=== PATIENT | female | born 1955 | race Caucasian/White ===

== ENCOUNTER → 2016-12-21 | Outpatient (CLI) | payer BC ==
[~2016-12-21] MED LIST: ACYC400T PO; ALBU1AER9 INH; AMIO200T4 PO; ASPI81TA28 PO; ATOR-54 PO; ATV5 PO; CLBCR15 EXT; FAMO20TA11 PO; HYDR25TA4 PO; METO25TA56 PO; PRENTAB65 PO
--- NOTE | 2016-12-22 15:36 | MAMMOGRAPHY REPORT ---
BILATERAL DIGITAL SCREENING MAMMOGRAM TOMOSYNTHESIS WITH CAD: 12/21/2016 CLINICAL HISTORY: Routine screening. Patient has no complaints. TECHNIQUE: Breast tomosynthesis in addition to standard 2D mammography was performed. Current study was also evaluated with a Computer Aided Detection (CAD) system. COMPARISON: Comparison is made to exams dated: 03/24/2015 mammogram, 12/05/2012 mammogram, 01/20/2014 mammogram, 12/04/2011 mammogram, 12/01/2010 mammogram, and 11/17/2009 mammogram - [facility]. BREAST COMPOSITION: There are scattered areas of fibroglandular density in both breasts. FINDINGS: No suspicious masses, calcifications, or areas of architectural distortion are noted in e ither breast. There has been no significant interval change compared to prior exams. IMPRESSION: ACR BI-RADS CATEGORY 1: NEGATIVE There is no mammographic evidence of malignancy. A 1 year screening mammogram is recommended. The p atient will receive written notification of the results. Approximately 10% of breast cancers are not detected with mammography. A negative mammographic repor t should not delay biopsy if a clinically suggestive mass is present. Koki Morrissey M.D. ah/:12/22/2016 15:14:21 Management Developer: Taylor HERNANDEZ(R)(M), [facility] letter sent: Normal 1/2 BI-RADS Code: ACR BI-RADS Category 1: Negative
== END ==
LOC: C.MAMM 14:51
PROVIDERS: ATTEND Family Medicine
DX: Z12.31 Encounter for screening mammogram for malignant neoplasm of breast (principal)

== ENCOUNTER → 2018-01-22 | Outpatient (CLI) | payer BC ==
--- NOTE | 2018-01-23 15:56 | MAMMOGRAPHY REPORT ---
BILATERAL DIGITAL SCREENING MAMMOGRAM TOMOSYNTHESIS WITH CAD: 01/22/2018 CLINICAL HISTORY: Routine screening. Patient has no complaints. TECHNIQUE: Breast tomosynthesis in addition to standard 2D mammography was performed. Current study was also evaluated with a Computer Aided Detection (CAD) system. COMPARISON: Comparison is made to exams dated: 12/21/2016 mammogram, 03/24/2015 mammogram, 01/20/2014 m ammogram, 12/05/2012 mammogram, 12/04/2011 mammogram, and 12/01/2010 mammogram - [facility]. BREAST COMPOSITION: The tissue of both breasts is almost entirely fatty. FINDINGS: The parenchymal pattern is unchanged. No developing mass, architectural distortion or clus ter of suspicious microcalcifications is seen in either breast. IMPRESSION: ACR BI-RADS CATEGORY 2: BENIGN There is no mammographic evidence of malignancy. A 1 year screening mammogram is recommended. The pa tient will receive written notification of the results. Approximately 10% of breast cancers are not detected with mammography. A negative mammographic report should not delay biopsy if a clinically suggestive mass is present. Rupa Xavier M.D. ay/:01/22/2018 15:53:25 Newspaper Columnist: Marifer Pacheco, M, [facility] letter sent: Normal 1/2 BI-RADS Code: ACR BI-RADS Category 2: Benign
== END | disposition home or self-care (01) ==
LOC: C.MAMM 15:13
PROVIDERS: ATTEND Family Medicine
DX: Z12.31 Encounter for screening mammogram for malignant neoplasm of breast (principal)

== ENCOUNTER 2022-08-21 17:30 | Inpatient (IN) ==
--- NOTE | 2022-08-21 18:02 | ED Triage Note ---
Date of Service August 21, 2022 History of Present Illness This patient was briefly evaluated while in triage. An abbreviated physical exam was performed. This patient is a 66-year-old Female with past medical history of hypertension and aortic stenosis who presents to the ED for evaluation of confusion and excessive tiredness. Last known well last night 7:30 pm. Off balance, shaky, and trouble walking. Hurt her left shoulder a few weeks ago and was started on prednisone. Also had a flu shot 2 weeks ago. Family is wondering if she is having a reaction to the prednisone or the flu shot. Physical Exam CONSTITUTIONAL: No acute distress. Well appearing. HEENT: atraumatic. PERRL. RESPIRATORY: Clear to auscultation bilaterally. Equal expansion bilaterally. CARDIOVASCULAR: Regular rate and rhythm with no murmurs, rubs or gallops. Normal peripheral perfusion. No peripheral edema. GASTROINTESTINAL: Soft, nontender. MUSCULOSKELETAL: Normal strength in all 4 extremities. NEUROLOGIC: Alert and oriented X 4 with normal affect. Normal sensation in all 4 extremities. No facial droop. No pronator drift. Normal speech. Unsteady gait. Given the last known well time is significantly outside the treatment window, a nd a stroke alert was not initiated. Initial orders for labs and / or imaging were placed and patient was placed in the waiting area until a bed is available. Please see further documentation for the full ED course.
--- NOTE | 2022-08-21 19:18 | XRay Report ---
XR chest 1V portable CLINICAL HISTORY: Dizziness, confusion TECHNIQUE: Single frontal radiograph of the chest was obtained. Comparison: Comparison is made to chest radiograph 01/10/2019 FINDINGS: Median sternotomy wires are unchanged. Cardiomegaly is noted. The lungs are clear. No evidence of ple ural effusion or pneumothorax. IMPRESSION: No acute chest disease. ACT 112: Negative or not required by law. Electronically signed by: Tor Simmons M.D. 08/21/2022 7:17 PM
[2022-08-21] MEDS ORDERED: SODIUM CHLORIDE 0.9% 1000ML 1,000 ML IV ONE (20:05)
--- NOTE | 2022-08-21 20:08 | Emergency Department Note ---
Impression & Plan Acute alteration in mental status ADMIT ED Provider Note HPI: The patient is a 66-year-old female who presents the emergency department with a chief complaint of confusion. Patient presents with friend at the bedside who states that the patient normally speaks with them in the morning, patient was unavailable this morning and they became concerned, they checked on the patient at approximately 4 PM and she was in her bedroom in a confused state, apparently she had just gotten out of bed and she was standing in the bedroom and seemed slow to respond to questions and seemed confused. She was last known to be normal last night around 7:30 PM when they were speaking to her on the phone and she seemed to be in her baseline state of health. On arrival here to the ED the patient does not have any focal deficits, she is slow to respond to some questioning and is unsure of the year but she is aware of her surroundings, she knows that she is in the hospital, she knows her name and age. Patient is otherwise hemodynamically stable on arrival. Denies any history of alcohol use, no reported history of any opioid abuse or prescription drug abuse per friends at the bedside. ROS: -Neuro: Altered mental status/confusion *10 point review systems was conducted and is otherwise negative unless stated above *Outpatient medications and allergy history reviewed PE: General: Alert, NAD, oriented to place and self but not year HEENT: Normocephalic, atraumatic Eyes: Extraocular eye movement is intact, no scleral erythema Pulmonary: Clear to auscultation bilaterally, no wheezing Cardio: Regular rate and rhythm GI: Abdomen is soft, nontender : No suprapubic tenderness MSK: No evidence of trauma or malformation of the extremities, no edema Skin: No evidence of rash Neuro: Alert, no focal deficits, equal bilateral mri special procedures technologist strength, symmetrical facial movements are appreciated, patient is somewhat slow to respond to questions Psychiatric: Cooperative inbound call center representative: - An order was placed for continuous cardiac monitoring - Patient was noted to be in sinus rhythm with a rate of 60 CTA HEAD: No aneurysm or large vessel occlusion. Radiologist: Lamar Hood M.D. CTA NECK: No dissection, occlusion, or significant stenosis the carotid or vertebral vessels. Mild atherosclerosis aortic arch and left carotid bifurcation. 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 Findings are chronic, and of uncertain significance. No flow restricting lesion. Radiologist: Lamar Hood M.D. EKG: Rate: 74 Rhythm: Sinus rhythm Intervals: Within normal limits ST changes: No ST elevation Time: 2019 NIH STROKE SCALE: 1A: Level of consciousness Alert; keenly responsive 0 1B: Ask month and age 1 question right +1 1C: 'Blink eyes' & 'squeeze hands' Performs both tasks 0 2: Horizontal extraocular movements Normal 0 3: Visual yang No visual loss 0 4: Facial palsy Normal symmetry 0 5A: Left arm motor drift No drift for 10 seconds 0 5B: Right arm motor drift No drift for 10 seconds 0 6A: Left leg motor drift No drift for 5 seconds 0 6B: Right leg motor drift No drift for 5 seconds 0 7: Limb Ataxia No ataxia 0 8: Sensation Normal; no sensory loss 0 9: Language/aphasia Normal; no aphasia 0 10: Dysarthria Normal 0 11: Extinction/inattention No abnormality 0 TOTAL NIH SCORE =1 Medical Decision Making: Patient presented to the emergency department with confusion, found in her home later this afternoon by friends after they were unable to get in touch with her. Patient seemed confused when she was in her bedroom, on arrival here to the ED she is somewhat slow to answer my questions but she is otherwise in no acute distress and without focal deficits. NIH is noted to be 1, patient was last seen normal at 7:30 PM last night, she is not considered a candidate for tPA or aggressive therapy at this time secondary to being outside the window in addit ion to stroke possibly not being the diagnosis. IV was established, lab work obtained, CT angiography of the head and neck were ordered. These do not show any evidence of large vessel occlusion or stroke. No evidence of intracranial bleeding. Lab work shows evidence of a leukocytosis greater than 15,000, patient is noted to be on steroids currently for rotator cuff issue, she does have a left shift, unclear source at this time. Patient's urinalysis does appear to be infected, this is a potential source. She was treated with broad-spectrum antibiotics given her altered mental status inclu ding vancomycin and cefepime. Patient later complained of headache, she was given Reglan and Benadryl as well as IV fluids. My reassessment her friend at the bedside does mention upon my questioning that the patient has not used a wood stove in her house however patient does later state that she turned on an oil furnace just last night for the first time. Do have concern that she may been exposed to carbon monoxide given her headache and altered mental status, her mental status seems to be im proving throughout her stay here in the ED which would also be of concern for carbon monoxide poisoning. Carboxyhemoglobin level was obtained and is within normal limits however this was several hours after the patient's presentation. Patient's friend did return to the house to have a check for carbon monoxide. No one else is living at this residence according to the patient and her friend at the bedside. At this time patient will be admitted given her altered mental status and urinary tract infection, although stroke is lower on my differential at this time it cannot be completely ruled out I do think the patient would benefit from MRI imaging of the brain tomorrow. I discussed the above findings with the on-call hospitalist, Dr. Monroy, and the patient was admitted in stable condition for further care. Diagnosis: 1. Altered mental status/confusion, acute 2. UTI 3. Headache 4. Possible carbon monoxide exposure Disposition: ADMIT Efrain Brewster DO Emergency Medicine Past Med/Surg History Medical History (Updated 08/22/22 @ 02:21 by Efrain Brewster DO) Aortic stenosis Diabetes Heart disease HTN (hypertension) Skin problem Family History (Updated 01/10/19 @ 11:38 by Mayra Nieto) Other Diabetes Heart disease Hypertension Social History Smoking Status: Never smoker Feels Safe at Home: Yes Allergies Allergies Allergy/AdvReac Type Severity Reaction Status Date / Time No Known Allergies Allergy Unverified 08/22/22 00:02 Home Meds Home Medications Medication Instructions Recorded Confirmed acyclovir 400 mg tablet 400 mg PO DIRECTED 08/22/22 08/22/22 amoxicillin 500 mg capsule 2,000 mg PO DIRECTED PRN Take 1 08/22/22 08/22/22 hr proir to dental apt. aspirin 81 mg tablet,delayed 81 mg PO DAILY 08/22/22 08/22/22 release atorvastatin 20 mg tablet 20 mg PO DAILY 08/22/22 08/22/22 clobetasol 0.05 % topical cream 1 applic topical BID PRN flare ups 08/22/22 08/22/22 ferrous sulfate 325 mg (65 mg 325 mg PO DAILY 08/22/22 08/22/22 iron) tablet (iron) hydrochlorothiazide 25 mg tablet 25 mg PO QAM 08/22/22 08/22/22 lisinopril 20 mg tablet 20 mg PO QAM 08/22/22 08/22/22 lorazepam 0.5 mg tablet 0.5 mg PO HS PRN Sleep 08/22/22 08/22/22 prednisone 20 mg tablet 20 mg PO .TAPER UD 08/22/22 08/22/22 Results & Data (ED) Vital Signs Vital Signs - 24 hr 08/21/22 17:58 08/21/22 20:06 08/21/22 20:26 Temperature 37.0 C 37.3 C Temperature Source Oral Oral Pulse Rate 80 72 Pulse Rate [Apical] 73 Pulse Rate from SpO2 Sensor 71 Pulse Rhythm [Apical] Regular Respiratory Rate 18 16 32 H Respiratory Effort / Characteristics Non-Labored Spontaneous Respiratory Depth Normal Respiratory Pattern Regular Blood Pressure 138/80 Blood Pressure [Right Arm] 143/63 H Blood Pressure Mean 99 Blood Pressure Mean [Right Arm] 89 Blood Pressure Position Sitting Blood Pressure Position [Right Arm] Pulse Oximetry 98 97 97 Oxygen Delivery Method Room Air Room Air Sepsis Recent Fever Within 48 Hours No Sepsis New/Unexplained Change in Mental Status No Sepsis Action Taken by Nursing No Action Required 08/21/22 20:30 08/21/22 20:30 08/21/22 20:40 Temperature Temperature Source Pulse Rate 71 73 Pulse Rate [Apical] Pulse Rate from SpO2 Sensor 71 73 Pulse Rhythm [Apical] Respiratory Rate 29 H Respiratory Effort / Characteristics Respiratory Depth Respiratory Pattern Blood Pressure 143/65 H Blood Pressure [Right Arm] Blood Pressure Mean 91 Blood Pressure Mean [Right Arm] Blood Pressure Position Blood Pressure Position [Right Arm] Pulse Oximetry 97 97 Oxygen Delivery Method Room Air Room Air Room Air Sepsis Recent Fever Within 48 Hours Sepsis New/Unexplained Change in Mental Status Sepsis Action Taken by Nursing 08/21/22 20:50 08/21/22 21:00 08/21/22 21:01 Temperature Temperature Source Pulse Rate 83 84 80 Pulse Rate [Apical] Pulse Rate from SpO2 Sensor 82 76 79 Pulse Rhythm [Apical] Respiratory Rate 25 H 22 Respiratory Effort / Characteristics Respiratory Depth Respiratory Pattern Blood Pressure Blood Pressure [Right Arm] Blood Pressure Mean Blood Pressure Mean [Right Arm] Blood Pressure Position Blood Pressure Position [Right Arm] Pulse Oximetry 98 97 98 Oxygen Delivery Method Room Air Room Air Room Air Sepsis Recent Fever Within 48 Hours Sepsis New/Unexplained Change in Mental Status Sepsis Action Taken by Nursing 08/21/22 21:01 08/21/22 21:10 08/21/22 21:20 Temperature Temperature Source Pulse Rate 78 74 Pulse Rate [Apical] Pulse Rate from SpO2 Sensor 78 75 Pulse Rhythm [Apical] Respiratory Rate 24 Respiratory Effort / Characteristics Respiratory Depth Respiratory Pattern Blood Pressure 144/85 H Blood Pressure [Right Arm] Blood Pressure Mean 104 Blood Pressure Mean [Right Arm] Blood Pressure Position Blood Pressure Position [Right Arm] Pulse Oximetry 98 94 Oxygen Delivery Method Room Air Room Air Room Air Sepsis Recent Fever Within 48 Hours Sepsis New/Unexplained Change in Mental Status Sepsis Action Taken by Nursing 08/21/22 21:30 08/21/22 21:30 08/21/22 21:40 Temperature Temperature Source Pulse Rate 76 81 Pulse Rate [Apical] Pulse Rate from SpO2 Sensor 76 81 Pulse Rhythm [Apical] Respiratory Rate 25 H Respiratory Effort / Characteristics Respiratory Depth Respiratory Pattern Blood Pressure 129/66 Blood Pressure [Right Arm] Blood Pressure Mean 87 Blood Pressure Mean [Right Arm] Blood Pressure Position Blood Pressure Position [Right Arm] Pulse Oximetry 92 94 Oxygen Delivery Method Room Air Room Air Room Air Sepsis Recent Fever Within 48 Hours Sepsis New/Unexplained Change in Mental Status Sepsis Action Taken by Nursing 08/21/22 23:52 08/22/22 01:00 Temperature Temperature Source Pulse Rate Pulse Rate [Apical] 62 58 L Pulse Rate from SpO2 Sensor Pulse Rhythm [Apical] Respiratory Rate 18 18 Respiratory Effort / Characteristics Non-Labored Spontaneous Non-Labored Spontaneous Respiratory Depth Normal Normal Respiratory Pattern Regular Regular Blood Pressure Blood Pressure [Right Arm] 129/66 107/55 L Blood Pressure Mean Blood Pressure Mean [Right Arm] 87 72 Blood Pressure Position Blood Pressure Position [Right Arm] Sitting Sitting Pulse Oximetry 97 93 Oxygen Delivery Method Room Air Room Air Sepsis Recent Fever Within 48 Hours Sepsis New/Unexplained Change in Mental Status Sepsis Action Taken by Nursing Laboratory Data Result diagrams: 08/21/22 20:09 08/21/22 20:09 Lab Results 08/21/22 08/21/22 08/21/22 Range/Units 20:09 20:09 20:09 WBC 15.95 H (4.8-10.8) K/ul RBC 4.04 (3.93-5.22) M/uL Hgb 11.7 L (12.0-16.0) g/dl Hct 36.4 (34.1-44.9) % MCV 90.1 (80.0-100.0) fL MCH 29.0 (25.0-34.0) pg MCHC 32.1 (32.0-36.0) g/dL RDW Std Deviation 42.3 (36.4-46.3) fL RDW Coeff of Aimee 12.8 (11.5-14.5) % Plt Count 364 (130-400) K/uL MPV 8.8 L (9.4-12.3) fL Immature Gran % (Auto) 1.0 % Neut % (Auto) 79.1 % Lymph % (Auto) 11.1 % Haakon % (Auto) 8.6 % Eos % (Auto) 0.0 % Baso % (Auto) 0.2 % Reticulocyte % (Auto) (0.5-2.0) % Neut # (Auto) 12.62 H (1.4-6.5) K/uL Lymph # (Auto) 1.77 (1.2-3.4) K/uL Haakon # (Auto) 1.37 H (0.24-0.82) K/uL Eos # (Auto) 0.00 (0-0.50) K/uL Baso # (Auto) 0.03 (0-0.2) K/uL Reticulocyte # (0.02-0.10) 10^6/uL Immature Gran # (Auto) 0.16 H (0.00-0.02) K/uL PT 11.2 (9.0-12.0) Seconds INR 1.1 (0.9-1.1) APTT 28.2 (21.0-31.0) Seconds PTT Ratio 1.0 Carboxyhemoglobin % THgb Sodium 139 (136-145) mmol/L Potassium 3.1 L (3.5-5.1) mmol/L Chloride 101 (98-107) mmol/L Carbon Dioxide 31 (21-32) mmol/L Anion Gap 7 (3-11) BUN 18 (6-23) mg/dl Creatinine 0.76 (0.6-1.2) mg/dl Est Cr Clr Drug Dosing Not Reportable Est GFR ( Amer) 93.4 ml/min Est GFR (Non-Af Amer) 80.6 ml/min BUN/Creatinine Ratio 23.7 H (10-20) Glucose 110 H (70-99(Fasting)) mg/dl Lactate (0.4-2.0) mmol/L Calcium 9.3 (8.5-10.1) mg/dl Magnesium (1.7-2.4) mg/dl Iron (35-150) mcg/dl Transferrin (200-360) mg/dl Ferritin (8-388) ng/ml Total Bilirubin 0.5 (0.2-1.0) mg/dl AST 12 L (13-39) U/L ALT 10 (7-52) U/L Alkaline Phosphatase 72 (34-104) U/L Ammonia (18-72) umol/L Troponin I High Sens 42.4 H (0-14) pg/ml Total Protein 6.9 (6.0-8.3) gm/dl Albumin 3.8 (3.4-5.0) gm/dl Globulin 3.1 (2.5-4.0) gm/dl Albumin/Globulin Ratio 1.2 (0.9-2) Vitamin B12 (180-914) pg/ml Folate (>5.38) ng/ml TSH (0.300-4.500) uIu/ml Urine Color Urine Appearance (Clear) Urine pH (4.5-7.5) Ur Specific [place] (1.000-1.030) Urine Protein (Negative) Urine Glucose (UA) (Negative) Urine Ketones (Negative) Urine Blood (Negative) Urine Nitrite (Negative) Urine Bilirubin (Negative) Urine Urobilinogen (Negative) Ur Leukocyte Esterase (Negative) Urine WBC (Auto) (0-5) /hpf Urine RBC (Auto) (0-4) /hpf U Hyaline Cast (Auto) (0-5) /lpf U Epithel Cells (Auto) (0-5) /lpf Urine Bacteria (Auto) (Negative) Urine Opiates Screen (Neg) Ur Methadone, Qual (Neg) Urine Barbiturates (Neg) Ur Phencyclidine (PCP) (Neg) U Amphetamin/Meth Scrn (Neg) MDMA (Ecstasy) Screen (Neg) U Benzodiazepines Scrn (Neg) Ur Cocaine Metabolite (Neg) U Marijuana (THC) Screen (Neg) Ethyl Alcohol mg/dL (<10.0) mg/dl Lyme Disease IgG Ab (Negative) Lyme Disease IgM Ab (Negative) SARS-CoV-2 (PCR) (Negative) Influenza Type A (PCR) (Neg) Influenza Type B (PCR) (Neg) RSV (RT-PCR) (Neg) 08/21/22 08/21/22 08/21/22 Range/Units 20:09 20:09 20:09 WBC (4.8-10.8) K/ul RBC (3.93-5.22) M/uL Hgb (12.0-16.0) g/dl Hct (34.1-44.9) % MCV (80.0-100.0) fL MCH (25.0-34.0) pg MCHC (32.0-36.0) g/dL RDW Std Deviation (36.4-46.3) fL RDW Coeff of Aimee (11.5-14.5) % Plt Count (130-400) K/uL MPV (9.4-12.3) fL Immature Gran % (Auto) % Neut % (Auto) % Lymph % (Auto) % [place] % (Auto) % Eos % (Auto) % Baso % (Auto) % Reticulocyte % (Auto) (0.5-2.0) % Neut # (Auto) (1.4-6.5) K/uL Lymph # (Auto) (1.2-3.4) K/uL Haakon # (Auto) (0.24-0.82) K/uL Eos # (Auto) (0-0.50) K/uL Baso # (Auto) (0-0.2) K/uL Reticulocyte # (0.02-0.10) 10^6/uL Immature Gran # (Auto) (0.00-0.02) K/uL PT (9.0-12.0) Seconds INR (0.9-1.1) APTT (21.0-31.0) Seconds PTT Ratio Carboxyhemoglobin % THgb Sodium (136-145) mmol/L Potassium (3.5-5.1) mmol/L Chloride (98-107) mmol/L Carbon Dioxide (21-32) mmol/L Anion Gap (3-11) BUN (6-23) mg/dl Creatinine (0.6-1.2) mg/dl Est Cr Clr Drug Dosing Est GFR ( Amer) ml/min Est GFR (Non-Af Amer) ml/min BUN/Creatinine Ratio (10-20) Glucose (70-99(Fasting)) mg/dl Lactate (0.4-2.0) mmol/L Calcium (8.5-10.1) mg/dl Magnesium 2.0 (1.7-2.4) mg/dl Iron (35-150) mcg/dl Transferrin (200-360) mg/dl Ferritin (8-388) ng/ml Total Bilirubin (0.2-1.0) mg/dl AST (13-39) U/L ALT (7-52) U/L Alkaline Phosphatase (34-104) U/L Ammonia 30.0 (18-72) umol/L Troponin I High Sens (0-14) pg/ml Total Protein (6.0-8.3) gm/dl Albumin (3.4-5.0) gm/dl Globulin (2.5-4.0) gm/dl Albumin/Globulin Ratio (0.9-2) Vitamin B12 (180-914) pg/ml Folate (>5.38) ng/ml TSH (0.300-4.500) uIu/ml Urine Color Urine Appearance (Clear) Urine pH (4.5-7.5) Ur Specific [place] (1.000-1.030) Urine Protein (Negative) Urine Glucose (UA) (Negative) Urine Ketones (Negative) Urine Blood (Negative) Urine Nitrite (Negative) Urine Bilirubin (Negative) Urine Urobilinogen (Negative) Ur Leukocyte Esterase (Negative) Urine WBC (Auto) (0-5) /hpf Urine RBC (Auto) (0-4) /hpf U Hyaline Cast (Auto) (0-5) /lpf U Epithel Cells (Auto) (0-5) /lpf Urine Bacteria (Auto) (Negative) Urine Opiates Screen (Neg) Ur Methadone, Qual (Neg) Urine Barbiturates (Neg) Ur Phencyclidine (PCP) (Neg) U Amphetamin/Meth Scrn (Neg) MDMA (Ecstasy) Screen (Neg) U Benzodiazepines Scrn (Neg) Ur Cocaine Metabolite (Neg) U Marijuana (THC) Screen (Neg) Ethyl Alcohol mg/dL (<10.0) mg/dl Lyme Disease IgG Ab (Negative) Lyme Disease IgM Ab (Negative) SARS-CoV-2 (PCR) NEGATIVE (Negative) Influenza Type A (PCR) Negative (Neg) Influenza Type B (PCR) Negative (Neg) RSV (RT-PCR) Negative (Neg) 08/21/22 08/21/22 08/21/22 Range/Units 20:28 21:15 21:50 WBC (4.8-10.8) K/ul RBC (3.93-5.22) M/uL Hgb (12.0-16.0) g/dl Hct (34.1-44.9) % MCV (80.0-100.0) fL MCH (25.0-34.0) pg MCHC (32.0-36.0) g/dL RDW Std Deviation (36.4-46.3) fL RDW Coeff of Aimee (11.5-14.5) % Plt Count (130-400) K/uL MPV (9.4-12.3) fL Immature Gran % (Auto) % Neut % (Auto) % Lymph % (Auto) % [place] % (Auto) % Eos % (Auto) % Baso % (Auto) % Reticulocyte % (Auto) (0.5-2.0) % Neut # (Auto) (1.4-6.5) K/uL Lymph # (Auto) (1.2-3.4) K/uL [place]on # (Auto) (0.24-0.82) K/uL Eos # (Auto) (0-0.50) K/uL Baso # (Auto) (0-0.2) K/uL Reticulocyte # (0.02-0.10) 10^6/uL Immature Gran # (Auto) (0.00-0.02) K/uL PT (9.0-12.0) Seconds INR (0.9-1.1) APTT (21.0-31.0) Seconds PTT Ratio Carboxyhemoglobin % THgb Sodium (136-145) mmol/L Potassium (3.5-5.1) mmol/L Chloride (98-107) mmol/L Carbon Dioxide (21-32) mmol/L Anion Gap (3-11) BUN (6-23) mg/dl Creatinine (0.6-1.2) mg/dl Est Cr Clr Drug Dosing Est GFR ( Amer) ml/min Est GFR (Non-Af Amer) ml/min BUN/Creatinine Ratio (10-20) Glucose (70-99(Fasting)) mg/dl Lactate 0.8 (0.4-2.0) mmol/L Calcium (8.5-10.1) mg/dl Magnesium (1.7-2.4) mg/dl Iron (35-150) mcg/dl Transferrin (200-360) mg/dl Ferritin (8-388) ng/ml Total Bilirubin (0.2-1.0) mg/dl AST (13-39) U/L ALT (7-52) U/L Alkaline Phosphatase (34-104) U/L Ammonia (18-72) umol/L Troponin I High Sens (0-14) pg/ml Total Protein (6.0-8.3) gm/dl Albumin (3.4-5.0) gm/dl Globulin (2.5-4.0) gm/dl Albumin/Globulin Ratio (0.9-2) Vitamin B12 (180-914) pg/ml Folate (>5.38) ng/ml TSH (0.300-4.500) uIu/ml Urine Color Yellow Urine Appearance Clear (Clear) Urine pH 7.5 (4.5-7.5) Ur Specific [place] 1.024 (1.000-1.030) Urine Protein 3+ H (Negative) Urine Glucose (UA) Negative (Negative) Urine Ketones Negative (Negative) Urine Blood Trace H (Negative) Urine Nitrite Negative (Negative) Urine Bilirubin Negative (Negative) Urine Urobilinogen Negative (Negative) Ur Leukocyte Esterase 2+ H (Negative) Urine WBC (Auto) >30 H (0-5) /hpf Urine RBC (Auto) 10-30 H (0-4) /hpf U Hyaline Cast (Auto) 10-30 H (0-5) /lpf U Epithel Cells (Auto) 5-10 H (0-5) /lpf Urine Bacteria (Auto) Negative (Negative) Urine Opiates Screen (Neg) Ur Methadone, Qual (Neg) Urine Barbiturates (Neg) Ur Phencyclidine (PCP) (Neg) U Amphetamin/Meth Scrn (Neg) MDMA (Ecstasy) Screen (Neg) U Benzodiazepines Scrn (Neg) Ur Cocaine Metabolite (Neg) U Marijuana (THC) Screen (Neg) Ethyl Alcohol mg/dL < 10.0 (<10.0) mg/dl Lyme Disease IgG Ab (Negative) Lyme Disease IgM Ab (Negative) SARS-CoV-2 (PCR) (Negative) Influenza Type A (PCR) (Neg) Influenza Type B (PCR) (Neg) RSV (RT-PCR) (Neg) 08/21/22 08/21/22 08/22/22 Range/Units 21:54 23:59 01:06 WBC (4.8-10.8) K/ul RBC (3.93-5.22) M/uL Hgb (12.0-16.0) g/dl Hct (34.1-44.9) % MCV (80.0-100.0) fL MCH (25.0-34.0) pg MCHC (32.0-36.0) g/dL RDW Std Deviation (36.4-46.3) fL RDW Coeff of Aimee (11.5-14.5) % Plt Count (130-400) K/uL MPV (9.4-12.3) fL Immature Gran % (Auto) % Neut % (Auto) % Lymph % (Auto) % [place] % (Auto) % Eos % (Auto) % Baso % (Auto) % Reticulocyte % (Auto) 1.1 (0.5-2.0) % Neut # (Auto) (1.4-6.5) K/uL Lymph # (Auto) (1.2-3.4) K/uL [place] # (Auto) (0.24-0.82) K/uL Eos # (Auto) (0-0.50) K/uL Baso # (Auto) (0-0.2) K/uL Reticulocyte # 0.04 (0.02-0.10) 10^6/uL Immature Gran # (Auto) (0.00-0.02) K/uL PT (9.0-12.0) Seconds INR (0.9-1.1) APTT (21.0-31.0) Seconds PTT Ratio Carboxyhemoglobin 2.0 % THgb Sodium (136-145) mmol/L Potassium (3.5-5.1) mmol/L Chloride (98-107) mmol/L Carbon Dioxide (21-32) mmol/L Anion Gap (3-11) BUN (6-23) mg/dl Creatinine (0.6-1.2) mg/dl Est Cr Clr Drug Dosing Est GFR ( Amer) ml/min Est GFR (Non-Af Amer) ml/min BUN/Creatinine Ratio (10-20) Glucose (70-99(Fasting)) mg/dl Lactate (0.4-2.0) mmol/L Calcium (8.5-10.1) mg/dl Magnesium (1.7-2.4) mg/dl Iron (35-150) mcg/dl Transferrin (200-360) mg/dl Ferritin (8-388) ng/ml Total Bilirubin (0.2-1.0) mg/dl AST (13-39) U/L ALT (7-52) U/L Alkaline Phosphatase (34-104) U/L Ammonia (18-72) umol/L Troponin I High Sens (0-14) pg/ml Total Protein (6.0-8.3) gm/dl Albumin (3.4-5.0) gm/dl Globulin (2.5-4.0) gm/dl Albumin/Globulin Ratio (0.9-2) Vitamin B12 (180-914) pg/ml Folate (>5.38) ng/ml TSH (0.300-4.500) uIu/ml Urine Color Urine Appearance (Clear) Urine pH (4.5-7.5) Ur Specific [place] (1.000-1.030) Urine Protein (Negative) Urine Glucose (UA) (Negative) Urine Ketones (Negative) Urine Blood (Negative) Urine Nitrite (Negative) Urine Bilirubin (Negative) Urine Urobilinogen (Negative) Ur Leukocyte Esterase (Negative) Urine WBC (Auto) (0-5) /hpf Urine RBC (Auto) (0-4) /hpf U Hyaline Cast (Auto) (0-5) /lpf U Epithel Cells (Auto) (0-5) /lpf Urine Bacteria (Auto) (Negative) Urine Opiates Screen Neg (Neg) Ur Methadone, Qual Neg (Neg) Urine Barbiturates Neg (Neg) Ur Phencyclidine (PCP) Neg (Neg) U Amphetamin/Meth Scrn Neg (Neg) MDMA (Ecstasy) Screen Neg (Neg) U Benzodiazepines Scrn Neg (Neg) Ur Cocaine Metabolite Neg (Neg) U Marijuana (THC) Screen Neg (Neg) Ethyl Alcohol mg/dL (<10.0) mg/dl Lyme Disease IgG Ab (Negative) Lyme Disease IgM Ab (Negative) SARS-CoV-2 (PCR) (Negative) Influenza Type A (PCR) (Neg) Influenza Type B (PCR) (Neg) RSV (RT-PCR) (Neg) 08/22/22 08/22/22 08/22/22 Range/Units 01:06 01:06 01:06 WBC (4.8-10.8) K/ul RBC (3.93-5.22) M/uL Hgb (12.0-16.0) g/dl Hct (34.1-44.9) % MCV (80.0-100.0) fL MCH (25.0-34.0) pg MCHC (32.0-36.0) g/dL RDW Std Deviation (36.4-46.3) fL RDW Coeff of Aimee (11.5-14.5) % Plt Count (130-400) K/uL MPV (9.4-12.3) fL Immature Gran % (Auto) % Neut % (Auto) % Lymph % (Auto) % [place] % (Auto) % Eos % (Auto) % Baso % (Auto) % Reticulocyte % (Auto) (0.5-2.0) % Neut # (Auto) (1.4-6.5) K/uL Lymph # (Auto) (1.2-3.4) K/uL [place] # (Auto) (0.24-0.82) K/uL Eos # (Auto) (0-0.50) K/uL Baso # (Auto) (0-0.2) K/uL Reticulocyte # (0.02-0.10) 10^6/uL Immature Gran # (Auto) (0.00-0.02) K/uL PT (9.0-12.0) Seconds INR (0.9-1.1) APTT (21.0-31.0) Seconds PTT Ratio Carboxyhemoglobin % THgb Sodium (136-145) mmol/L Potassium (3.5-5.1) mmol/L Chloride (98-107) mmol/L Carbon Dioxide (21-32) mmol/L Anion Gap (3-11) BUN (6-23) mg/dl Creatinine (0.6-1.2) mg/dl Est Cr Clr Drug Dosing Est GFR ( Amer) ml/min Est GFR (Non-Af Amer) ml/min BUN/Creatinine Ratio (10-20) Glucose (70-99(Fasting)) mg/dl Lactate (0.4-2.0) mmol/L Calcium (8.5-10.1) mg/dl Magnesium (1.7-2.4) mg/dl Iron 10 L (35-150) mcg/dl Transferrin 142 L (200-360) mg/dl Ferritin 648.3 H (8-388) ng/ml Total Bilirubin (0.2-1.0) mg/dl AST (13-39) U/L ALT (7-52) U/L Alkaline Phosphatase (34-104) U/L Ammonia (18-72) umol/L Troponin I High Sens 37.7 H (0-14) pg/ml Total Protein (6.0-8.3) gm/dl Albumin (3.4-5.0) gm/dl Globulin (2.5-4.0) gm/dl Albumin/Globulin Ratio (0.9-2) Vitamin B12 235 (180-914) pg/ml Folate 14.48 (>5.38) ng/ml TSH 1.524 (0.300-4.500) uIu/ml Urine Color Urine Appearance (Clear) Urine pH (4.5-7.5) Ur Specific [place] (1.000-1.030) Urine Protein (Negative) Urine Glucose (UA) (Negative) Urine Ketones (Negative) Urine Blood (Negative) Urine Nitrite (Negative) Urine Bilirubin (Negative) Urine Urobilinogen (Negative) Ur Leukocyte Esterase (Negative) Urine WBC (Auto) (0-5) /hpf Urine RBC (Auto) (0-4) /hpf U Hyaline Cast (Auto) (0-5) /lpf U Epithel Cells (Auto) (0-5) /lpf Urine Bacteria (Auto) (Negative) Urine Opiates Screen (Neg) Ur Methadone, Qual (Neg) Urine Barbiturates (Neg) Ur Phencyclidine (PCP) (Neg) U Amphetamin/Meth Scrn (Neg) MDMA (Ecstasy) Screen (Neg) U Benzodiazepines Scrn (Neg) Ur Cocaine Metabolite (Neg) U Marijuana (THC) Screen (Neg) Ethyl Alcohol mg/dL (<10.0) mg/dl Lyme Disease IgG Ab (Negative) Lyme Disease IgM Ab (Negative) SARS-CoV-2 (PCR) (Negative) Influenza Type A (PCR) (Neg) Influenza Type B (PCR) (Neg) RSV (RT-PCR) (Neg) 08/22/22 Range/Units 01:06 WBC (4.8-10.8) K/ul RBC (3.93-5.22) M/uL Hgb (12.0-16.0) g/dl Hct (34.1-44.9) % MCV (80.0-100.0) fL MCH (25.0-34.0) pg MCHC (32.0-36.0) g/dL RDW Std Deviation (36.4-46.3) fL RDW Coeff of Aimee (11.5-14.5) % Plt Count (130-400) K/uL MPV (9.4-12.3) fL Immature Gran % (Auto) % Neut % (Auto) % Lymph % (Auto) % [place] % (Auto) % Eos % (Auto) % Baso % (Auto) % Reticulocyte % (Auto) (0.5-2.0) % Neut # (Auto) (1.4-6.5) K/uL Lymph # (Auto) (1.2-3.4) K/uL [place] # (Auto) (0.24-0.82) K/uL Eos # (Auto) (0-0.50) K/uL Baso # (Auto) (0-0.2) K/uL Reticulocyte # (0.02-0.10) 10^6/uL Immature Gran # (Auto) (0.00-0.02) K/uL PT (9.0-12.0) Seconds INR (0.9-1.1) APTT (21.0-31.0) Seconds PTT Ratio Carboxyhemoglobin % THgb Sodium (136-145) mmol/L Potassium (3.5-5.1) mmol/L Chloride (98-107) mmol/L Carbon Dioxide (21-32) mmol/L Anion Gap (3-11) BUN (6-23) mg/dl Creatinine (0.6-1.2) mg/dl Est Cr Clr Drug Dosing Est GFR ( Amer) ml/min Est GFR (Non-Af Amer) ml/min BUN/Creatinine Ratio (10-20) Glucose (70-99(Fasting)) mg/dl Lactate (0.4-2.0) mmol/L Calcium (8.5-10.1) mg/dl Magnesium (1.7-2.4) mg/dl Iron (35-150) mcg/dl Transferrin (200-360) mg/dl Ferritin (8-388) ng/ml Total Bilirubin (0.2-1.0) mg/dl AST (13-39) U/L ALT (7-52) U/L Alkaline Phosphatase (34-104) U/L Ammonia (18-72) umol/L Troponin I High Sens (0-14) pg/ml Total Protein (6.0-8.3) gm/dl Albumin (3.4-5.0) gm/dl Globulin (2.5-4.0) gm/dl Albumin/Globulin Ratio (0.9-2) Vitamin B12 (180-914) pg/ml Folate (>5.38) ng/ml TSH (0.300-4.500) uIu/ml Urine Color Urine Appearance (Clear) Urine pH (4.5-7.5) Ur Specific [place] (1.000-1.030) Urine Protein (Negative) Urine Glucose (UA) (Negative) Urine Ketones (Negative) Urine Blood (Negative) Urine Nitrite (Negative) Urine Bilirubin (Negative) Urine Urobilinogen (Negative) Ur Leukocyte Esterase (Negative) Urine WBC (Auto) (0-5) /hpf Urine RBC (Auto) (0-4) /hpf U Hyaline Cast (Auto) (0-5) /lpf U Epithel Cells (Auto) (0-5) /lpf Urine Bacteria (Auto) (Negative) Urine Opiates Screen (Neg) Ur Methadone, Qual (Neg) Urine Barbiturates (Neg) Ur Phencyclidine (PCP) (Neg) U Amphetamin/Meth Scrn (Neg) MDMA (Ecstasy) Screen (Neg) U Benzodiazepines Scrn (Neg) Ur Cocaine Metabolite (Neg) U Marijuana (THC) Screen (Neg) Ethyl Alcohol mg/dL (<10.0) mg/dl Lyme Disease IgG Ab Negative (Negative) Lyme Disease IgM Ab Equivocal A (Negative) SARS-CoV-2 (PCR) (Negative) Influenza Type A (PCR) (Neg) Influenza Type B (PCR) (Neg) RSV (RT-PCR) (Neg) Administered Medications Discontinued Medications Acetaminophen (Acetaminophen 10mg/Ml Pediatric Dosing) 1,000 mg IV ONCE ONE Stop: 08/21/22 20:36 Last Admin: 08/21/22 21:14 Dose: Not Given Documented By: LESLI Acetaminophen (Acetaminophen 1000 Mg/100 Ml Iv) Confirm Administered Dose 1,000 mg IV .STK-MED ONE Stop: 08/21/22 20:47 Last Admin: 08/21/22 21:13 Dose: 1,000 mg Documented By: LESLI Diphenhydramine HCl (Diphenhydramine 50 Mg/Ml Vial) 50 mg IV NOW STA Stop: 08/21/22 23:35 Last Admin: 08/21/22 23:58 Dose: 50 mg Documented By: JORGE Sodium Chloride (Nss 1000ml) 1,000 mls @ 999 mls/hr IV .Q1H1M ONE Stop: 08/21/22 21:05 Last Infusion: 08/21/22 21:20 Dose: 0 mls/hr Documented By: Admin: 08/21/22 20:24 Dose: 999 mls/hr Documented By: LESLI Vancomycin HCl 1,500 mg/ (Sodium Chloride) 530 mls @ 200 mls/hr IV NOW ONE Stop: 08/21/22 23:12 Last Admin: 08/21/22 21:20 Dose: Not Given Documented By: LESLI Cefepime HCl (Maxipime) 2,000 mg in 20 mls @ 5 mls/min IV NOW STA; Protocol Stop: 08/21/22 20:37 Last Admin: 08/21/22 21:06 Dose: Not Given Documented By: LESLI Vancomycin HCl 1,500 mg/ (Sodium Chloride) 530 mls @ 200 mls/hr IV NOW ONE Stop: 08/22/22 00:57 Last Admin: 08/22/22 00:13 Dose: 200 mls/hr Documented By: JORGE Ceftriaxone Sodium (Rocephin) 2,000 mg in 70 mls @ 140 mls/hr IV NOW STA Stop: 08/21/22 22:48 Last Infusion: 08/22/22 01:29 Dose: 0 mls/hr Documented By: Admin: 08/21/22 23:25 Dose: 140 mls/hr Documented By: JORGE Ioversol (Optiray 300 500ml) 117 ml IV ONCE ONE Stop: 08/21/22 22:07 Last Admin: 08/21/22 22:06 Dose: 117 ml Documented By: GENNY Ketorolac Tromethamine (Ketorolac Tromethamine 15 Mg/Ml Vial) 15 mg IV NOW ONE Stop: 08/22/22 00:50 Last Admin: 08/22/22 01:23 Dose: 15 mg Documented By: JORGE Metoclopramide HCl (Metoclopramide Hcl Inj 5 Mg/Ml 2 Ml Vial) 10 mg IV NOW STA Stop: 08/21/22 23:35 Last Admin: 08/21/22 23:58 Dose: 10 mg Documented By: JORGE Potassium Chloride (Potassium Chloride Crtab 20 Meq Tabcr) 40 meq PO NOW STA Stop: 08/22/22 00:03 Last Admin: 08/22/22 01:23 Dose: 40 meq Documented By: JORGE Imaging Data Radiologist's Impression: Chest X-Ray 08/21/22 18:05 XR chest 1V portable CLINICAL HISTORY: Dizziness, confusion TECHNIQUE: Single frontal radiograph of the chest was obtained. Comparison: Comparison is made to chest radiograph 01/10/2019 FINDINGS: Median sternotomy wires are unchanged. Cardiomegaly is noted. The lungs are clear. No evidence of pleural effusion or pneumothorax. IMPRESSION: No acute chest disease. ACT 112: Negative or not required by law. Electronically signed by: Tor Simmons M.D. 08/21/2022 7:17 PM Discharge Plan Visit Data Chief Complaint: Confusion Stated Complaint: CONFUSION ED Provider: Efrain Brewster Discharge Problem: Acute alteration in mental status Forms Stand Alone Forms: My [facility] Prescriptions Prescriptions: No Action amoxicillin 500 mg capsule 2,000 mg PO DIRECTED PRN (Reason: Take 1 hr proir to dental apt.) atorvastatin 20 mg tablet 20 mg PO DAILY lisinopril 20 mg tablet 20 mg PO QAM prednisone 20 mg tablet 20 mg PO .TAPER UD Rx Instructions: TAKE 3 TABS FOR 3 DAYS, 2 TABS FOR 3 DAYS, 1 TAB FOR 3 DAYS, 1/2 TAB FOR 3 DAYS. clobetasol 0.05 % Cream 1 applic TOPICAL BID PRN (Reason: flare ups) acyclovir 400 mg tablet 400 mg PO DIRECTED Rx Instructions: 1 tab 5xs prn aspirin [Aspir-Low] 81 mg Tablet,Delayed Release (Dr/Ec) 81 mg PO DAILY lorazepam 0.5 mg Tablet 0.5 mg PO HS PRN (Reason: Sleep) ferrous sulfate [iron] 325 mg (65 mg iron) Tablet 325 mg PO DAILY hydrochlorothiazide 25 mg tablet 25 mg PO QAM Referrals Referrals: Pita Horton PA-C [Primary Care Provider] -
[2022-08-21 20:24] LABS: Basophils # (auto) 0.03 K/uL (0-0.2); Basophils % (auto) 0.2 %; Hematocrit (blood only) 36.4 % (34.1-44.9); Hemoglobin 11.7 g/dl (12.0-16.0); Immature Granulocytes # (auto) 0.16 K/uL (0.00-0.02); Lymphocytes # (auto) 1.77 K/uL (1.2-3.4); Lymphocytes % (auto) 11.1 %; Mean Corpuscular Hgb Conc 32.1 g/dL (32.0-36.0); Mean Corpuscular Volume 90.1 fL (80.0-100.0); Mean Platelet Volume 8.8 fL (9.4-12.3); Monocytes # (auto) 1.37 K/uL (0.24-0.82); Monocytes % (auto) 8.6 %; Neutrophils # (auto) 12.62 K/uL (1.4-6.5); Neutrophils % (auto) 79.1 %; Platelet Count 364 K/uL (130-400); RDW Coefficient of Variation 12.8 % (11.5-14.5); RDW Standard Deviation 42.3 fL (36.4-46.3); Red Blood Count 4.04 M/uL (3.93-5.22); White Blood Count 15.95 K/ul (4.8-10.8)
[2022-08-21] MEDS ORDERED: VANCOMYCIN HCL 1,500 MG in SODIUM CHLORIDE 0.9% 500 ML IV ONE ×2 (20:34→22:19)
[2022-08-21] MEDS ORDERED: CEFEPIME 2,000 MG/20 ML VIAL IV STA (20:34)
[2022-08-21] MEDS ORDERED: VANCOMYCIN CONSULT ACTIVE PRN ×2 (20:34→22:19)
[2022-08-21] MEDS ORDERED: ACETAMINOPHEN 10MG/ML CUSTOM DOSING (PED, LOW WT) IV ONE (20:35)
[2022-08-21 20:38] LABS: INR 1.1 (0.9-1.1); Partial Thromboplastin Time 28.2 Seconds (21.0-31.0); Prothrombin Time 11.2 Seconds (9.0-12.0)
[2022-08-21] MEDS ORDERED: ACETAMINOPHEN 1000 MG/100 ML IV IV ONE (20:46)
[2022-08-21 20:53] LABS: Troponin I High Sensitivity 42.4 pg/ml (0-14)
[2022-08-21 21:01] LABS: Alanine Aminotransferase 10 U/L (7-52); Albumin Globulin Ratio 1.2 (0.9-2); Albumin Level 3.8 gm/dl (3.4-5.0); Alkaline Phosphatase 72 U/L (34-104); Anion Gap 7 (3-11); Aspartate Aminotransferase 12 U/L (13-39); BUN Creatinine Ratio 23.7 (10-20); Bilirubin,Total 0.5 mg/dl (0.2-1.0); Blood Urea Nitrogen 18 mg/dl (6-23); Calcium 9.3 mg/dl (8.5-10.1); Carbon Dioxide 31 mmol/L (21-32); Chloride 101 mmol/L (98-107); Est GFR (African American) 93.4 ml/min; Est GFR (Non-African American) 80.6 ml/min; Globulin 3.1 gm/dl (2.5-4.0); Glucose 110 mg/dl (70-99(Fasting)); Potassium 3.1 mmol/L (3.5-5.1); Sodium 139 mmol/L (136-145); Total Protein 6.9 gm/dl (6.0-8.3)
[2022-08-21 21:29] LABS: Influenza A virus by PCR Negative (Neg); Influenza B virus by PCR Negative (Neg); RSV by PCR Negative (Neg); SARS CoV2 RNA(COVID-19) InHosp NEGATIVE (Negative)
[2022-08-21] MEDS ORDERED: OPTIRAY 300 500mL IV ONE (22:06)
[2022-08-21 22:07] LABS: Appearance Urine Clear (Clear); Bacteria Urine Automated Negative (Negative); Bilirubin Urine Negative (Negative); Blood Urine Trace (Negative); Color Urine Yellow; Glucose Urine UA Negative (Negative); Ketones Urine Negative (Negative); Leukocyte Esterase Urine 2+ (Negative); Nitrite Urine Negative (Negative); Specific Gravity Urine 1.024 (1.000-1.030); Urobilinogen Urine Negative (Negative); WBC Urine Automated >30 /hpf (0-5); pH Urine 7.5 (4.5-7.5)
[2022-08-21 22:14] LABS: Protein Urine 3+ (Negative)
[2022-08-21] MEDS ORDERED: cefTRIAXone SODIUM 2,000 MG/70 ML BAG IV STA (22:19)
[2022-08-21 22:47] LABS: Amphetamines+Metham, Urine Neg (Neg); Barbiturates, Urine Neg (Neg); Benzodiazepine, Urine Neg (Neg); Cocaine, Urine Neg (Neg); MDMA (Ecstacy), Urine Neg (Neg); Methadone, Urine Neg (Neg); Opiate, Urine Neg (Neg); Phencyclidine, Urine Neg (Neg)
[2022-08-21] MEDS ORDERED: METOCLOPRAMIDE HCL INJ 5 MG/ML 2 ML VIAL IV STA (23:34)
[2022-08-21] MEDS ORDERED: diphenhydrAMINE 50 MG/ML VIAL IV STA (23:34)
[2022-08-22] MEDS ORDERED: POTASSIUM CHLORIDE CRTAB 20 MEQ TABCR PO STA (00:02)
--- NOTE | 2022-08-22 00:11 | History & Physical Report ---
Date of Service August 22, 2022 Assessment & Plan (1) Encephalopathy: Plan: ? Possible infectious etiology, no overt sepsis for now Complicated UTI Equivocal Lyme screen hypertension, stable bicuspid aortic stenosis status post bioprosthetic AVR hyperlipidemia on statin Rx Steroid-induced hyperglycemia rule out DM Medical telemetry Urine CS, Cefepime Doxycycline for abnormal Lyme test hold lorazepam for now until patient more awake DVT prophylaxis. Lovenox subcu Full code Patient partner requesting updates from providers. Mr. Antwan Chu, contact #[phone]. Text document was generated using [employer] voice recognition software. It may contain grammatical or spelling errors. Kindly contact undersigned for clarification of any documentation item in question. History of Present Illness Chief Complaint: Confusion Primary Care Provider: Pita Horton PA-C History obtained from patient, family, and records. Medical history significant for hypertension, bicuspid aortic stenosis status post bioprosthetic AVR, hyperlipidemia. Patient noted to be sleepy by family at home yesterday. Patient confused. Achy headache symptoms. No chest pain, no shortness of breath, no abdominal pain, no dysuria complaints. No fever, no chills. No recollection of recent tick exposure. No new medications except for prednisone course recently prescribed by PCP for left shoulder pain attributed to rotator cuff syndrome. Patient denies use of home bedtime lorazepam for sleep. Patient seen by [facility] outpatient 3 days ago. Patient also remembers landing on her home furnace for the first time this season. No prior issues with furnace as per patient. Patient brought to the ER for evaluation. Cefepime and Vancomycin administered at the ER. 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 aspirin 81 mg tablet,delayed 81 mg PO DAILY 08/22/22 08/22/22 History release atorvastatin 20 mg tablet 20 mg PO DAILY 08/22/22 08/22/22 History clobetasol 0.05 % topical cream 1 applic topical BID PRN flare ups 08/22/22 08/22/22 History ferrous sulfate 325 mg (65 mg 325 mg PO DAILY 08/22/22 08/22/22 History iron) tablet (iron) hydrochlorothiazide 25 mg tablet 25 mg PO QAM 08/22/22 08/22/22 History lisinopril 20 mg tablet 20 mg PO QAM 08/22/22 08/22/22 History lorazepam 0.5 mg tablet 0.5 mg PO HS PRN Sleep 08/22/22 08/22/22 History prednisone 20 mg tablet 20 mg PO .TAPER UD 08/22/22 08/22/22 History Past Med/Surg History Medical History (Updated 08/22/22 @ 08:29 by Yury Coombs MD) Aortic stenosis Diabetes Heart disease HTN (hypertension) Skin problem Family History (Updated 01/10/19 @ 11:38 by Mayra Nieto) Other Diabetes Heart disease Hypertension Social History Smoking Status: Former smoker Second Hand Exposure: No; Do You Dip or Chew Tobacco: No; Tobacco Cessation Education Requested by Patient: No Hx Alcohol Use: Yes Alcohol type: hard liquor Hx Substance Use: No Preferred Language: Kyrgyz Communication Ability: Effective Sql Developer Dba Required: No Beliefs That Will Affect Care: None Current Living Situation: Alone Other Information That Helps Us Care for You: No Feels Safe at Home: Yes Safety Concerns: Feels Safe At This Time Assistive Devices: Glasses Review of Systems Review of Systems: As per HPI, left shoulder pain, all other systems reviewed and negative Physical Exam Physical Exam: GENERAL: Slightly uncomfortable, obese, lethargic, no respiratory distress SKIN: Normal color, warm HEENT: Bespectacled, [place] palpebral conjunctivae, no ptosis, dry buccal mucosa NECK : Supple, no tenderness CHEST : CTA, no tenderness HEART : RRR, no obvious murmurs ABDOMEN: Some distention, nontender EXTREMITIES : No LE swelling/tenderness, left shoulder tenderness NEUROLOGIC : Lethargic, no facial asymmetry, no other gross focality Results & Data Results & Data ([facility]) Vital Signs (Past 12 Hours) Vital Signs Temp Pulse Pulse Resp BP BP Pulse Ox 08/21/22 23:52 62 18 129/66 97 08/21/22 21:40 81 94 08/21/22 21:30 76 25 H 92 08/21/22 21:30 129/66 08/21/22 21:20 74 94 08/21/22 21:10 78 24 98 08/21/22 21:01 144/85 H 08/21/22 21:01 80 98 08/21/22 21:00 84 22 97 08/21/22 20:50 83 25 H 98 08/21/22 20:40 73 29 H 97 08/21/22 20:30 71 97 08/21/22 20:30 143/65 H 08/21/22 20:26 72 32 H 97 08/21/22 20:06 37.3 C 73 16 143/63 H 97 08/21/22 17:58 37.0 C 80 18 138/80 98 O2 Del Method 08/21/22 23:52 Room Air 08/21/22 21:40 Room Air 08/21/22 21:30 Room Air 08/21/22 21:30 Room Air 08/21/22 21:20 Room Air 08/21/22 21:10 Room Air 08/21/22 21:01 Room Air 08/21/22 21:01 Room Air 08/21/22 21:00 Room Air 08/21/22 20:50 Room Air 08/21/22 20:40 Room Air 08/21/22 20:30 Room Air 08/21/22 20:30 Room Air 08/21/22 20:26 Room Air 08/21/22 20:06 08/21/22 17:58 Room Air Laboratory Results Laboratory Results WBC 15.95 K/ul (4.8-10.8) H 08/21/22 20:09 RBC 4.04 M/uL (3.93-5.22) 08/21/22 20:09 Hgb 11.7 g/dl (12.0-16.0) L 08/21/22 20:09 Hct 36.4 % (34.1-44.9) 08/21/22 20:09 MCV 90.1 fL (80.0-100.0) 08/21/22 20:09 MCH 29.0 pg (25.0-34.0) 08/21/22 20:09 MCHC 32.1 g/dL (32.0-36.0) 08/21/22 20:09 RDW Std Deviation 42.3 fL (36.4-46.3) 08/21/22 20:09 RDW Coeff of Aimee 12.8 % (11.5-14.5) 08/21/22 20:09 Plt Count 364 K/uL (130-400) 08/21/22 20:09 MPV 8.8 fL (9.4-12.3) L 08/21/22 20:09 Immature Gran % (Auto) 1.0 % 08/21/22 20:09 Neut % (Auto) 79.1 % 08/21/22 20:09 Lymph % (Auto) 11.1 % 08/21/22 20:09 [place] % (Auto) 8.6 % 08/21/22 20:09 Eos % (Auto) 0.0 % 08/21/22 20:09 Baso % (Auto) 0.2 % 08/21/22 20:09 Neut # (Auto) 12.62 K/uL (1.4-6.5) H 08/21/22 20:09 Lymph # (Auto) 1.77 K/uL (1.2-3.4) 08/21/22 20:09 [place] # (Auto) 1.37 K/uL (0.24-0.82) H 08/21/22 20:09 Eos # (Auto) 0.00 K/uL (0-0.50) 08/21/22 20:09 Baso # (Auto) 0.03 K/uL (0-0.2) 08/21/22 20:09 Immature Gran # (Auto) 0.16 K/uL (0.00-0.02) H 08/21/22 20:09 PT 11.2 Seconds (9.0-12.0) 08/21/22 20:09 INR 1.1 (0.9-1.1) 08/21/22 20:09 APTT 28.2 Seconds (21.0-31.0) 08/21/22 20:09 PTT Ratio 1.0 08/21/22 20:09 Sodium 139 mmol/L (136-145) 08/21/22 20:09 Potassium 3.1 mmol/L (3.5-5.1) L 08/21/22 20:09 Chloride 101 mmol/L (98-107) 08/21/22 20:09 Carbon Dioxide 31 mmol/L (21-32) 08/21/22 20:09 Anion Gap 7 (3-11) 08/21/22 20:09 BUN 18 mg/dl (6-23) 08/21/22 20:09 Creatinine 0.76 mg/dl (0.6-1.2) 08/21/22 20:09 Est Cr Clr Drug Dosing Not Reportable 08/21/22 20:09 Est GFR ( Amer) 93.4 ml/min 08/21/22 20:09 Est GFR (Non-Af Amer) 80.6 ml/min 08/21/22 20:09 BUN/Creatinine Ratio 23.7 (10-20) H 08/21/22 20:09 Glucose 110 mg/dl (70-99(Fasting)) H 08/21/22 20:09 Lactate 0.8 mmol/L (0.4-2.0) 08/21/22 21:15 Calcium 9.3 mg/dl (8.5-10.1) 08/21/22 20:09 Total Bilirubin 0.5 mg/dl (0.2-1.0) 08/21/22 20:09 AST 12 U/L (13-39) L 08/21/22 20:09 ALT 10 U/L (7-52) 08/21/22 20:09 Alkaline Phosphatase 72 U/L (34-104) 08/21/22 20:09 Ammonia 30.0 umol/L (18-72) 08/21/22 20:09 Troponin I High Sens 42.4 pg/ml (0-14) H 08/21/22 20:09 Total Protein 6.9 gm/dl (6.0-8.3) 08/21/22 20:09 Albumin 3.8 gm/dl (3.4-5.0) 08/21/22 20:09 Globulin 3.1 gm/dl (2.5-4.0) 08/21/22 20:09 Albumin/Globulin Ratio 1.2 (0.9-2) 08/21/22 20:09 Urine Color Yellow 08/21/22 21:50 Urine Appearance Clear (Clear) 08/21/22 21:50 Urine pH 7.5 (4.5-7.5) 08/21/22 21:50 Ur Specific [place] 1.024 (1.000-1.030) 08/21/22 21:50 Urine Protein 3+ (Negative) H 08/21/22 21:50 Urine Glucose (UA) Negative (Negative) 08/21/22 21:50 Urine Ketones Negative (Negative) 08/21/22 21:50 Urine Blood Trace (Negative) H 08/21/22 21:50 Urine Nitrite Negative (Negative) 08/21/22 21:50 Urine Bilirubin Negative (Negative) 08/21/22 21:50 Urine Urobilinogen Negative (Negative) 08/21/22 21:50 Ur Leukocyte Esterase 2+ (Negative) H 08/21/22 21:50 Urine WBC (Auto) >30 /hpf (0-5) H 08/21/22 21:50 Urine RBC (Auto) 10-30 /hpf (0-4) H 08/21/22 21:50 U Hyaline Cast (Auto) 10-30 /lpf (0-5) H 08/21/22 21:50 U Epithel Cells (Auto) 5-10 /lpf (0-5) H 08/21/22 21:50 Urine Bacteria (Auto) Negative (Negative) 08/21/22 21:50 Urine Opiates Screen Neg (Neg) 08/21/22 21:54 Ur Methadone, Qual Neg (Neg) 08/21/22 21:54 Urine Barbiturates Neg (Neg) 08/21/22 21:54 Ur Phencyclidine (PCP) Neg (Neg) 08/21/22 21:54 U Amphetamin/Meth Scrn Neg (Neg) 08/21/22 21:54 MDMA (Ecstasy) Screen Neg (Neg) 08/21/22 21:54 U Benzodiazepines Scrn Neg (Neg) 08/21/22 21:54 Ur Cocaine Metabolite Neg (Neg) 08/21/22 21:54 U Marijuana (THC) Screen Neg (Neg) 08/21/22 21:54 Ethyl Alcohol mg/dL < 10.0 mg/dl (<10.0) 08/21/22 20:28 SARS-CoV-2 (PCR) NEGATIVE (Negative) 08/21/22 20:09 Influenza Type A (PCR) Negative (Neg) 08/21/22 20:09 Influenza Type B (PCR) Negative (Neg) 08/21/22 20:09 RSV (RT-PCR) Negative (Neg) 08/21/22 20:09 Impressions Chest X-Ray 08/21/22 18:05 XR chest 1V portable CLINICAL HISTORY: Dizziness, confusion TECHNIQUE: Single frontal radiograph of the chest was obtained. Comparison: Comparison is made to chest radiograph 01/10/2019 FINDINGS: Median sternotomy wires are unchanged. Cardiomegaly is noted. The lungs are clear. No evidence of pleural effusion or pneumothorax. IMPRESSION: No acute chest disease. ACT 112: Negative or not required by law. Electronically signed by: Tor Simmons M.D. 08/21/2022 7:[address] angio head initial read: No aneurysmor large vessel occlusion. CT angio neck initial read: No dissection, occlusion, or significant stenosis the carotid or vertebral vesse ls. Mild atherosclerosis aortic arch and left carotid bifurcation. 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 Findings are chronic, and of uncertain significance. No flowrestricting lesion EKG as per my interpretation :Rate 75, NSR, normal axis, T wave abnormality septal leads
[2022-08-22] MEDS ORDERED: LACTATED RINGER'S 1,000 ML IV ONE ×2 (00:49→23:35)
[2022-08-22] MEDS ORDERED: KETOROLAC TROMETHAMINE 15 MG/ML VIAL IV ONE (00:49)
[2022-08-22 01:32] LABS: Reticulocyte % 1.1 % (0.5-2.0); Reticulocytes # 0.04 10^6/uL (0.02-0.10)
[2022-08-22 01:58] LABS: Troponin I High Sensitivity 37.7 pg/ml (0-14)
[2022-08-22] MEDS ORDERED: POTASSIUM CHLORIDE CRTAB 20 MEQ TABCR PO ONE (02:00)
[2022-08-22 02:12] LABS: Ferritin 648.3 ng/ml (8-388)
[2022-08-22 02:17] LABS: Folate (Folic Acid) 14.48 ng/ml (>5.38)
[2022-08-22 02:21] LABS: Lyme Ab IgG w/WB Rflx Negative (Negative)
[2022-08-22 02:25] LABS: Lyme Ab IgM w/WB Rflx Equivocal (Negative)
[2022-08-22] MEDS ORDERED: DOXYCYCLINE HYCLATE 100 MG in DEXTROSE 5% 100 ML IV STA (04:30)
[2022-08-22] MEDS ORDERED: PROMETHAZINE HCL 12.5 MG in SODIUM CHLORIDE 0.9% 50 ML IV PRN (04:39)
[2022-08-22] MEDS ORDERED: Patient's HEIGHT &/or WEIGHT Needed SCH (05:15)
[2022-08-22] MEDS: CEFEPIME 2,000 MG in SYRINGE 0 ML IV SCH ×3 (07:04→21:27)
[2022-08-22] MEDS: ACETAMINOPHEN 325 MG TAB PO PRN ×4 (07:08→23:28)
[2022-08-22 07:14] LABS: Basophils # (auto) 0.04 K/uL (0-0.2); Basophils % (auto) 0.3 %; Eosinophils # (auto) 0.01 K/uL (0-0.50); Eosinophils % (auto) 0.1 %; Hematocrit (blood only) 32.4 % (34.1-44.9); Hemoglobin 10.5 g/dl (12.0-16.0); Immature Granulocytes # (auto) 0.13 K/uL (0.00-0.02); Immature Granulocytes % (auto) 1.1 %; Lymphocytes # (auto) 2.09 K/uL (1.2-3.4); Lymphocytes % (auto) 17.3 %; Mean Corpuscular Hemoglobin 29.6 pg (25.0-34.0); Mean Corpuscular Hgb Conc 32.4 g/dL (32.0-36.0); Mean Corpuscular Volume 91.3 fL (80.0-100.0); Mean Platelet Volume 8.6 fL (9.4-12.3); Monocytes # (auto) 1.01 K/uL (0.24-0.82); Monocytes % (auto) 8.4 %; Neutrophils # (auto) 8.79 K/uL (1.4-6.5); Neutrophils % (auto) 72.8 %; Platelet Count 285 K/uL (130-400); RDW Coefficient of Variation 13.1 % (11.5-14.5); RDW Standard Deviation 43.7 fL (36.4-46.3); Red Blood Count 3.55 M/uL (3.93-5.22); White Blood Count 12.07 K/ul (4.8-10.8)
[2022-08-22 08:06] LABS: Calcium 8.7 mg/dl (8.5-10.1); Potassium 3.6 mmol/L (3.5-5.1)
[2022-08-22] MEDS: ENOXAPARIN INJ 40 MG/0.4 ML SYR SQ SCH (08:15)
[2022-08-22] MEDS: ATORVASTATIN 20 MG TAB PO SCH (08:15)
[2022-08-22] MEDS: FERROUS SULFATE 325 MG TAB PO SCH ×2 (08:15→11:45)
[2022-08-22] MEDS: ASPIRIN 81 MG ECTAB PO SCH (08:15)
[2022-08-22] MEDS: lisinopril 20 MG TAB PO SCH (08:16)
--- NOTE | 2022-08-22 08:30 | CT Scan Report ---
CT ANGIOGRAM OF THE BRAIN COMBO; CT ANGIOGRAM OF THE NECK CLINICAL HISTORY: Dizziness. Headache. Change in mental status. COMPARISON STUDY: CT of the brain dated 01/10/2019. TECHNIQUE: Unenhanced axial CT scan of the brain is performed. Subsequently, following the IV adminis tration of 117 of Optiray 300, CT angiogram of the head and neck was performed from the aortic arch t o the vertex. Images are reviewed in the axial, sagittal, and coronal planes. 3-D MIPS images are cre ated and assessed. IV contrast was administered without complication. All measurements were calculate d based on NASCET criteria. A dose lowering technique was utilized adhering to the principles of ALA RA. CT DOSE: 1100.63 mGy.cm FINDINGS: Brain parenchyma: There is age-related involutional change noting mild subcortical and periventricula r microangiopathic disease. There is no hemorrhage, mass effect, or evidence of acute territorial isc hemia by CT criteria. There is no evidence of enhancing mass lesion on the angiogram phase images. Th e ventricles, sulci, and cisterns are prominent secondary to involutional change. Saucedo-white matter d ifferentiation is preserved. No extra-axial fluid collection is seen. Thoracic aorta: There is atherosclerotic calcification of the thoracic aorta. Visualized portions of the thoracic aorta are normal in caliber. The aortic arch demonstrates standard 3-vessel anatomy. Right carotid arterial system: The right common carotid artery is widely patent, as are the right int ernal and external carotid arteries. Left carotid arterial system: The left common carotid artery is widely patent, as are the left automotive internet sales consultant al and external carotid arteries. Mild calcified plaque is noted in the carotid bulb. Vertebral arteries: The vertebral arteries are widely patent bilaterally noting mild right-sided [place]. Subclavian arteries: Widely patent bilaterally. Intracranial vasculature: There is atherosclerotic calcification of the cavernous carotid arteries. T he [place] is developmentally complete. The internal carotid arteries are patent at the skul l base, as are the anterior and middle cerebral arteries bilaterally. The vertebrobasilar system and posterior cerebral arteries are widely patent. The right vertebral artery is dominant. There is no an eurysm, high-grade stenosis, or focal vessel cut off seen throughout the intracranial circulation. Jugular veins: Patent bilaterally. Dural sinuses: Patent. Lung apices: Partially visualized upper lobe lung parenchyma appears clear. Soft tissues: The visualized pharyngeal soft tissues are normal in appearance noting angiographic pha se technique. The oropharyngeal airway appears widely patent. The salivary and thyroid glands are nor mal in appearance. No cervical lymphadenopathy is seen. Skeletal structures: The skeletal structures are osteopenic. The calvarium appears intact. The cervic al spine is maintained noting multilevel spondylosis. No lytic or blastic lesion is seen. The patient is status post midline sternotomy. Orbits: The bony orbits are intact. Orbital contents are normal as visualized. Sinuses and mastoids: The paranasal sinuses are clear. The mastoid air cells are well pneumatized. IMPRESSION: 1. There is no hemorrhage, mass effect, or evidence of acute territorial ischemia by CT criteria. 2. Unremarkable CT angiogram of the brain. 3. Unremarkable CT angiogram of the neck. ACT 112: Negative or not required by law. Electronically signed by: Bashir Blanco M.D. 08/22/2022 8:28 AM
[2022-08-22 09:01] LABS: BUN Creatinine Ratio 22.5 (10-20); Est GFR (African American) 87.8 ml/min; Est GFR (Non-African American) 75.8 ml/min
[2022-08-22 09:44] LABS: Estimated Average Glucose 126 mg/dl
[2022-08-22 11:14] LABS: A calco-baum cmplx NotReported Not Detected (NotDetected); Bact fragilis Not Reported Not Detected (NotDetected); C auris Not Reported Not Detected (NotDetected); Calbicans Not Reported Not Detected (NotDetected); Candida glabrata Not Reported Not Detected (NotDetected); Candida krusei Not Reported Not Detected (NotDetected); Cneoformans/gatti Not Reported Not Detected (NotDetected); Cparapsilosis Not Reported Not Detected (NotDetected); Ctropicalis Not Reported Not Detected (NotDetected); E cloacae compx Not Reported Not Detected (NotDetected); Efaecalis Not Reported Not Detected (NotDetected); Efaecium Not Reported Not Detected (NotDetected); Enterobacterales Not Reported Not Detected (NotDetected); Escherichia coli Not Reported Not Detected (NotDetected); H influenzae Not Reported Not Detected (NotDetected); K aerogenes Not Reported Not Detected (NotDetected); Koxytoca Not Reported Not Detected (NotDetected); Kpneumoniae grp Not Reported Not Detected (NotDetected); Lmonocyt Not Reported Not Detected (NotDetected); N meningitidis Not Reported Not Detected (NotDetected); P aeruginosa Not Reported Not Detected (NotDetected); Proteus spp Not Reported Not Detected (NotDetected); Salmonella spp Not Reported Not Detected (NotDetected); Smarcescens Not Reported Not Detected (NotDetected); Staph lugdunensis Not Reported Not Detected (NotDetected); Staph spp. Not Reported Not Detected (NotDetected); Staphaureus Not Reported Not Detected (NotDetected); Staphepi Not Reported Not Detected (NotDetected); Stenmaltophilia Not Reported Not Detected (NotDetected); Strep agal(GrpB) Not Reported Not Detected (NotDetected); Strep pneum Not Reported Not Detected (NotDetected); Strep pyog (GrpA) Not Reported Not Detected (NotDetected); Strep spp Not Reported DETECTED (NotDetected)
[2022-08-22 11:20] LABS: Streptococcus spp DETECTED (NotDetected)
--- NOTE | 2022-08-22 15:10 | Hospitalist Progress Note ---
Date of Service August 22, 2022 Assessment & Plan (1) Acute metabolic encephalopathy: Plan: Resolved on cefepime, mentating at baseline. Likely was secondary to infection, possible blood vs source. (2) Bacteremia: Plan: REcent skin rash, otherwise source unknown. Contaminant is also present, however, given symptoms recently and prosthetic valve, cont with broad abx. Considered vanc and gent for synergy, however, at this time she is clinically improved and there are no clinical signs of endocarditis. consulted ID who can add if needed. Echo ordered. Will repeat blood cultures in the morning. (3) UTI (urinary tract infection): Plan: Cont cefepime pending clinical improvement and UCx results. (4) S/P aortic valve replacement: Plan: Followed by [facility] (5) Shoulder pain: Plan: had some shoulder pain after chopping wood last week, suspect OA vs MSK irritation after extensive work. Improved but still present. Tylenol PRN (6) HTN (hypertension): Plan: Controlled, cont lisinopril. Hold HCTZ. (7) DVT prophylaxis: Plan: Lovenox full Code Dispo-to home when improved. ID to see her in am. Echo pending. Shivani Cervantes DO [facility] Hospitalist Admission and Anticipated Discharge Date Admission Date: August 22, 2022 Subjective 66 yo F presented with chills and confusion 24 hours prior to arrival confusion is resolved today and she is feeling herself again denies CP, SOB, fevers, chills tolerating PO GPC, strep species per biofire 3 of 4 bottles today She had a rash that was similar to poison patrick 2-3 weeks ago which she said also got onto her face and blistered denies recent dental work or other skin wounds denies any infections in the past 3 months empirically placed on PO doxy given equivocal IgM-awaiting western blot results no known tick bite within the last 6-8 weeks does report some increased urinary urgency over the past week. Review of Systems Review of Systems: All systems were reviewed and negative except as indicated above. Physical Exam Physical Exam: CONSTITUTIONAL: WNWD, vitals as above, generally well- appearing, NAD EYES: normal conjunctivae, no scleral icterus ENT: external ear and nose normal, MMM NECK: trachea midline RESPIRATORY: clear to auscultation bilaterally, no crackles, rales or wheezes, normal respiratory effort CARDIOVASCULAR: regular rate and rhythm, S1 and 2 heard without murmurs, gallops or rubs, no JVD, no peripheral edema CHEST: inspection of chest was normal GASTROINTESTINAL: soft, nontender, ND, no guarding MUSCULOSKELETAL: strength 5/5 throughout, head is normocephalic and atraumatic, SKIN: warm and dry, no evidence of rash at this time. NEUROLOGIC: CN 2-12 grossly intact, no sensory deficit, normal cognition, normal speech, no tremor, no gross focal deficits. PSYCHIATRIC: alert cooperative and oriented to person, place and time. Euthymic mood, makes good eye contact, language grossly intact, recent and remote memory grossly intact. Results & Data Results & Data ([facility]) Vital Signs (Past 12 Hours) Vital Signs Temp Pulse Pulse Pulse Resp BP Pulse Ox 08/22/22 11:38 36.7 C 67 19 146/76 H 97 08/22/22 07:51 36.6 C 62 18 128/72 94 08/22/22 04:39 08/22/22 04:58 36.7 C 70 15 114/75 96 08/22/22 03:30 58 L 20 95 Pulse Ox O2 Del Method O2 Del Method 08/22/22 11:38 Room Air 08/22/22 07:51 Room Air 08/22/22 04:39 95 Room Air 08/22/22 04:58 Room Air 08/22/22 03:30 Room Air Laboratory Results Short CBC 08/21/22 08/22/22 Range/Units 20:09 06:57 WBC 15.95 H 12.07 H (4.8-10.8) K/ul Hgb 11.7 L 10.5 L (12.0-16.0) g/dl Hct 36.4 32.4 L (34.1-44.9) % Plt Count 364 285 (130-400) K/uL BMP 08/21/22 08/22/22 20:09 06:57 Sodium 139 143 Potassium 3.1 L 3.6 Chloride 101 109 H Carbon Dioxide 31 29 BUN 18 18 Creatinine 0.76 0.80 Glucose 110 H 111 H Calcium 9.3 8.7 Liver Function 08/21/22 Range/Units 20:09 Total Bilirubin 0.5 (0.2-1.0) mg/dl AST 12 L (13-39) U/L ALT 10 (7-52) U/L Alkaline Phosphatase 72 (34-104) U/L Albumin 3.8 (3.4-5.0) gm/dl Urine 08/21/22 Range/Units 21:50 Urine Color Yellow Urine Appearance Clear (Clear) Urine pH 7.5 (4.5-7.5) Ur Specific Mchenry 1.024 (1.000-1.030) Urine Protein 3+ H (Negative) Urine Glucose (UA) Negative (Negative) Diagnostic Findings Head CTA 08/21/22 18:03 CT ANGIOGRAM OF THE BRAIN COMBO; CT ANGIOGRAM OF THE NECK CLINICAL HISTORY: Dizziness. Headache. Change in mental status. COMPARISON STUDY: CT of the brain dated 01/10/2019. TECHNIQUE: Unenhanced axial CT scan of the brain is performed. Subsequently, following the IV administration of 117 of Optiray 300, CT angiogram of the head and neck was performed from the aortic arch to the vertex. Images are reviewed in the axial, sagittal, and coronal planes. 3-D MIPS images are created and assessed. IV contrast was administered without complication. All measurements were calculated based on NASCET criteria. A dose lowering technique was utilized adhering to the principles of ALARA. CT DOSE: 1100.63 mGy.cm FINDINGS: Brain parenchyma: There is age-related involutional change noting mild subcortical and periventricular microangiopathic disease. There is no hemorrhage, mass effect, or evidence of acute territorial ischemia by CT criteria. There is no evidence of enhancing mass lesion on the angiogram phase images. The ventricles, sulci, and cisterns are prominent secondary to involutional change. Saucedo-white matter differentiation is preserved. No extra- axial fluid collection is seen. Thoracic aorta: There is atherosclerotic calcification of the thoracic aorta. Visualized portions of the thoracic aorta are normal in caliber. The aortic arch demonstrates standard 3-vessel anatomy. Right carotid arterial system: The right common carotid artery is widely patent, as are the right internal and external carotid arteries. Left carotid arterial system: The left common carotid artery is widely patent, as are the left internal and external carotid arteries. Mild calcified plaque is noted in the carotid bulb. Vertebral arteries: The vertebral arteries are widely patent bilaterally noting mild right-sided dominance. Subclavian arteries: Widely patent bilaterally. Intracranial vasculature: There is atherosclerotic calcification of the cavernous carotid arteries. The [place] is developmentally complete. The internal carotid arteries are patent at the skull base, as are the anterior and middle cerebral arteries bilaterally. The vertebrobasilar system and posterior cerebral arteries are widely patent. The right vertebral artery is dominant. There is no aneurysm, high-grade stenosis, or focal vessel cut off seen throughout the intracranial circulation. Jugular veins: Patent bilaterally. Dural sinuses: Patent. Lung apices: Partially visualized upper lobe lung parenchyma appears clear. Soft tissues: The visualized pharyngeal soft tissues are normal in appearance noting angiographic phase technique. The oropharyngeal airway appears widely patent. The salivary and thyroid glands are normal in appearance. No cervical lymphadenopathy is seen. Skeletal structures: The skeletal structures are osteopenic. The calvarium appears intact. The cervical spine is maintained noting multilevel spondylosis. No lytic or blastic lesion is seen. The patient is status post midline sternotomy. Orbits: The bony orbits are intact. Orbital contents are normal as visualized. Sinuses and mastoids: The paranasal sinuses are clear. The mastoid air cells are well pneumatized. IMPRESSION: 1. There is no hemorrhage, mass effect, or evidence of acute territorial ischemia by CT criteria. 2. Unremarkable CT angiogram of the brain. 3. Unremarkable CT angiogram of the neck. ACT 112: Negative or not required by law. Electronically signed by: Bashir Blanco M.D. 08/22/2022 8:28 AM Neck CTA 08/21/22 18:03 CT ANGIOGRAM OF THE BRAIN COMBO; CT ANGIOGRAM OF THE NECK CLINICAL HISTORY: Dizziness. Headache. Change in mental status. COMPARISON STUDY: CT of the brain dated 01/10/2019. TECHNIQUE: Unenhanced axial CT scan of the brain is performed. Subsequently, following the IV administration of 117 of Optiray 300, CT angiogram of the head and neck was performed from the aortic arch to the vertex. Images are reviewed in the axial, sagittal, and coronal planes. 3-D MIPS images are created and assessed. IV contrast was administered without complication. All measurements were calculated based on NASCET criteria. A dose lowering technique was utilized adhering to the principles of ALARA. CT DOSE: 1100.63 mGy.cm FINDINGS: Brain parenchyma: There is age-related involutional change noting mild subcortical and periventricular microangiopathic disease. There is no hemorrhage, mass effect, or evidence of acute territorial ischemia by CT criteria. There is no evidence of enhancing mass lesion on the angiogram phase images. The ventricles, sulci, and cisterns are prominent secondary to involutional change. Saucedo-white matter differentiation is preserved. No extra- axial fluid collection is seen. Thoracic aorta: There is atherosclerotic calcification of the thoracic aorta. Visualized portions of the thoracic aorta are normal in caliber. The aortic arch demonstrates standard 3-vessel anatomy. Right carotid arterial system: The right common carotid artery is widely patent, as are the right internal and external carotid arteries. Left carotid arterial system: The left common carotid artery is widely patent, as are the left internal and external carotid arteries. Mild calcified plaque is noted in the carotid bulb. Vertebral arteries: The vertebral arteries are widely patent bilaterally noting mild right-sided dominance. Subclavian arteries: Widely patent bilaterally. Intracranial vasculature: There is atherosclerotic calcification of the cavernous carotid arteries. The [place] is developmentally complete. The internal carotid arteries are patent at the skull base, as are the anterior and middle cerebral arteries bilaterally. The vertebrobasilar system and posterior cerebral arteries are widely patent. The right vertebral artery is dominant. There is no aneurysm, high-grade stenosis, or focal vessel cut off seen throughout the intracranial circulation. Jugular veins: Patent bilaterally. Dural sinuses: Patent. Lung apices: Partially visualized upper lobe lung parenchyma appears clear. Soft tissues: The visualized pharyngeal soft tissues are normal in appearance noting angiographic phase technique. The oropharyngeal airway appears widely patent. The salivary and thyroid glands are normal in appearance. No cervical lymphadenopathy is seen. Skeletal structures: The skeletal structures are osteopenic. The calvarium appears intact. The cervical spine is maintained noting multilevel spondylosis. No lytic or blastic lesion is seen. The patient is status post midline sternotomy. Orbits: The bony orbits are intact. Orbital contents are normal as visualized. Sinuses and mastoids: The paranasal sinuses are clear. The mastoid air cells are well pneumatized. IMPRESSION: 1. There is no hemorrhage, mass effect, or evidence of acute territorial ischemia by CT criteria. 2. Unremarkable CT angiogram of the brain. 3. Unremarkable CT angiogram of the neck. ACT 112: Negative or not required by law. Electronically signed by: Bashir Blanco M.D. 08/22/2022 8:28 AM Medications Administered Current Inpatient Medications Acetaminophen (Acetaminophen 325 Mg Tab) 650 mg PO Q4H PRN PRN Reason: Pain or Fever Stop: 09/21/22 04:38 Last Admin: 08/22/22 11:44 Dose: 650 mg Aspirin (Aspirin 81 Mg Ectab) 81 mg PO DAILY [facility] Stop: 09/21/22 08:59 Last Admin: 08/22/22 08:15 Dose: 81 mg Atorvastatin Calcium (Atorvastatin 20 Mg Tab) 20 mg PO DAILY [facility] Stop: 09/21/22 08:59 Last Admin: 08/22/22 08:15 Dose: 20 mg Doxycycline Hyclate (Doxycycline Hyclate 100 Mg Cap) 100 mg PO BID [facility] Stop: 09/01/22 20:59 Enoxaparin Sodium (Enoxaparin Inj 40 Mg/0.4 Ml Syr) 40 mg SQ QAM [facility] Stop: 09/21/22 08:59 Last Admin: 08/22/22 08:15 Dose: 40 mg Ferrous Sulfate (Ferrous Sulfate 325 Mg Tab) 325 mg PO DAILY@1200 [facility] Stop: 09/21/22 08:59 Last Admin: 08/22/22 11:45 Dose: 325 mg Cefepime HCl 2,000 mg/ Syringe 20 mls @ 5 mls/min IV Q8H [facility]; Protocol Stop: 09/01/22 05:59 Last Admin: 08/22/22 07:04 Dose: 5 mls/min Promethazine HCl 12.5 mg/ (Sodium Chloride) 50.5 mls @ 202 mls/hr IV Q6H PRN PRN Reason: Nausea And Vomiting Stop: 09/21/22 04:38 Lisinopril (Lisinopril 20 Mg Tab) 20 mg PO QAM [facility] Stop: 09/21/22 08:59 Last Admin: 08/22/22 08:16 Dose: 20 mg
[2022-08-22] MEDS ORDERED: GENTAMICIN CONSULT ACTIVE PRN (16:47)
[2022-08-22] MEDS ORDERED: VANCOMYCIN CONSULT ACTIVE PRN (16:47)
[2022-08-22] MEDS ORDERED: GENTAMICIN SULFATE 75 MG in DEXTROSE 5% 100 ML IV STA (16:47)
[2022-08-22] MEDS ORDERED: VANCOMYCIN HCL 1,500 MG in SODIUM CHLORIDE 0.9% 500 ML IV ONE (16:47)
[2022-08-22] MEDS ORDERED: VANCOMYCIN HCL 1,000 MG in SODIUM CHLORIDE 0.9% 500 ML IV SCH (17:00)
[2022-08-22] MEDS: CYANOCOBALAMIN (B-12) 500 MCG TABLET PO SCH (20:34)
[2022-08-22] MEDS ORDERED: DOXYCYCLINE HYCLATE 100 MG CAP PO SCH (21:00)
--- NOTE | 2022-08-22 22:54 | Electrocardiogram Report ---
Test Reason : Blood Pressure : / mmHG Vent. Rate : 074 BPM Atrial Rate : 074 BPM P-R Int : 114 ms QRS Dur : 072 ms QT Int : 368 ms P-R-T Axes : 053 010 024 degrees QTc Int : 408 ms Sinus rhythm with Premature atrial complexes Nonspecific ST abnormality Abnormal ECG When compared with ECG of 10-JAN-2019 10:56, Premature atrial complexes are now Present Nonspecific T wave abnormality no longer evident in Lateral leads Confirmed by Anderson Carlos ([id number]) on 08/22/2022 10:54:19 PM Referred By: REFERRED SELF Confirmed By:Anderson Carlos
[2022-08-23] MEDS: CEFEPIME 2,000 MG in SYRINGE 0 ML IV SCH (05:55)
[2022-08-23] MEDS: ACETAMINOPHEN 325 MG TAB PO PRN ×3 (05:55→21:24)
[2022-08-23 07:22] LABS: Basophils # (auto) 0.03 K/uL (0-0.2); Basophils % (auto) 0.3 %; Hematocrit (blood only) 29.9 % (34.1-44.9); Hemoglobin 9.8 g/dl (12.0-16.0); Lymphocytes # (auto) 1.67 K/uL (1.2-3.4); Lymphocytes % (auto) 16.6 %; Mean Corpuscular Hemoglobin 29.5 pg (25.0-34.0); Mean Corpuscular Hgb Conc 32.8 g/dL (32.0-36.0); Mean Corpuscular Volume 90.1 fL (80.0-100.0); Mean Platelet Volume 8.7 fL (9.4-12.3); Monocytes # (auto) 0.55 K/uL (0.24-0.82); Monocytes % (auto) 5.5 %; Neutrophils # (auto) 7.63 K/uL (1.4-6.5); Neutrophils % (auto) 75.6 %; Platelet Count 265 K/uL (130-400); RDW Standard Deviation 43.2 fL (36.4-46.3); Red Blood Count 3.32 M/uL (3.93-5.22); White Blood Count 10.08 K/ul (4.8-10.8)
[2022-08-23 07:55] LABS: BUN Creatinine Ratio 25.4 (10-20); Calcium 8.2 mg/dl (8.5-10.1); Creatinine Clr Calc Pharmacy 74.5 ml/min; Est GFR (African American) 104.7 ml/min; Est GFR (Non-African American) 90.3 ml/min; Potassium 3.5 mmol/L (3.5-5.1)
[2022-08-23] MEDS: CYANOCOBALAMIN (B-12) 500 MCG TABLET PO SCH (07:59)
[2022-08-23] MEDS: lisinopril 20 MG TAB PO SCH (07:59)
[2022-08-23] MEDS: ASPIRIN 81 MG ECTAB PO SCH (07:59)
[2022-08-23] MEDS: ENOXAPARIN INJ 40 MG/0.4 ML SYR SQ SCH (08:00)
[2022-08-23] MEDS: ATORVASTATIN 20 MG TAB PO SCH (08:00)
[2022-08-23] MEDS ORDERED: KETOROLAC TROMETHAMINE 15 MG/ML VIAL IV ONE (08:24)
[2022-08-23] MEDS ORDERED: VANCOMYCIN CONSULT ACTIVE PRN (11:13)
[2022-08-23] MEDS ORDERED: VANCOMYCIN HCL 1,250 MG in SODIUM CHLORIDE 0.9% 500 ML IV SCH (11:15)
[2022-08-23] MEDS ORDERED: GENTAMICIN CONSULT ACTIVE PRN (11:52)
[2022-08-23] MEDS ORDERED: GENTAMICIN SULFATE 180 MG in DEXTROSE 5% 100 ML IV SCH (12:00)
[2022-08-23] MEDS: cefTRIAXone SODIUM 2,000 MG in DEXTROSE 5% 50 ML IV SCH (12:11)
[2022-08-23] MEDS: FERROUS SULFATE 325 MG TAB PO SCH (12:14)
--- NOTE | 2022-08-23 13:35 | Cardiology Consultation ---
Date of Consultation August 23, 2022 Assessment & Plan (1) Bacteremia: (2) Acute metabolic encephalopathy: (3) S/P aortic valve replacement: Plan Patient is a 66-year-old female with known congenitally bicuspid aortic valve status post surgical repair 2014 with [place] epic bioprosthesis and a sending aortic tube graft presents now with subacute onset complaints, bacteremia and mentation issues possibly reflecting subacute bacterial endocarditis. Blood cultures returning positive for streptococcal species. Echocardiogram suggestive of small vegetations with normally functioning bioprosthesis Plan: Agree with antibiotics and ID consultation RENE scheduled for a.m., n.p.o. after midnight Discussed initial management of endocarditis with patient. Further information pending results of testing. If significant prosthetic valve involvement possible need for surgical repair placement noted. Streptococcal species more favorable EKG without conduction abnormalities, chest x-ray clear, head CTA without lesion no peripheral embolic phenomena on examination. Would consider cerebral MRI with any change in mental status further. Patient notes claustrophobia has limited MRI in the past History of Present Illness Reason for Consultation: Bacteremia, possible endocarditis Requesting Physician: Dr. Leija Attending Physician: Roselyn Leija MD History of Present Illness Patient is a 66-year-old female whose ongoing cardiac issues have been 1. Congenitally bicuspid aortic valve 2. Status post aortic valve replacement with 23 mm [place] bioprosthesis and ascending aortic replacement with 28 mm tube graft 3. Hypertension 4. Hyperlipidemia 5. Preoperative coronary angiography 2014, distal left main taper of 30 to 50% with mild luminal irregularities other vessels and no obstructive disease Patient is a 66-year-old female who is usually very active but notes over the past 1 to 2 weeks decline in exercise tolerance with generalized weakness malaise. Saw primary care orthopedics to the left arm pain and discomfort. Treated with oral prednisone with some improvement. Patient notes some night sweats no acute weight loss or gain. No overt fevers or chills per patient no reported oral lesions or discomfort. Day of admission noted increasing fatigue and generalized confusion. Missed an important scheduled phone call Presented to the ER due to confusion and change in mental status. No focal deficits on exam. Elevated white cell count and temperature noted. CT head without focal abnormality Mentation improving this morning Blood cultures now returning positive for streptococcal species and 2 vials Echocardiogram demonstrates bioprosthetic aortic valve with suspicious changes for endocarditis. Patient had already had breakfast at time of evaluation Allergies Allergy/AdvReac Type Severity Reaction Status Date / Time No Known Allergies Allergy Unverified 08/22/22 00:02 Home Medications Medication Instructions Recorded Confirmed Type acyclovir 400 mg tablet 400 mg PO DIRECTED 08/22/22 08/22/22 History amoxicillin 500 mg capsule 2,000 mg PO DIRECTED PRN Take 1 08/22/22 08/22/22 History hr proir to dental apt. aspirin 81 mg tablet,delayed 81 mg PO DAILY 08/22/22 08/22/22 History release atorvastatin 20 mg tablet 20 mg PO DAILY 08/22/22 08/22/22 History clobetasol 0.05 % topical cream 1 applic topical BID PRN flare ups 08/22/22 08/22/22 History ferrous sulfate 325 mg (65 mg 325 mg PO DAILY 08/22/22 08/22/22 History iron) tablet (iron) hydrochlorothiazide 25 mg tablet 25 mg PO QAM 08/22/22 08/22/22 History lisinopril 20 mg tablet 20 mg PO QAM 08/22/22 08/22/22 History lorazepam 0.5 mg tablet 0.5 mg PO HS PRN Sleep 08/22/22 08/22/22 History prednisone 20 mg tablet 20 mg PO .TAPER UD 08/22/22 08/22/22 History Patient History Medical History Aortic stenosis Diabetes Heart disease HTN (hypertension) Skin problem Family History Other Diabetes Heart disease Hypertension Social History Smoking Status: Former smoker Second Hand Exposure: No; Do You Dip or Chew Tobacco: No; Tobacco Cessation Education Requested by Patient: No Hx Alcohol Use: Yes Alcohol type: hard liquor Hx Substance Use: No Preferred Language: [place] Communication Ability: Effective 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 Required: No Beliefs That Will Affect Care: None marital status: Single Current Living Situation: Alone Other Information That Helps Us Care for You: No Feels Safe at Home: No Is there a partner from a previous relationship who is making you feel unsafe now?: No Any Concerns about Your Family Situation: No Would You Like to Speak to Someone About Your Situation: No Safety Concerns: Feels Safe At This Time Assistive Devices: None Review of Systems Review of Systems: All systems reviewed & are unremarkable except as noted in HPI & below Physical Exam Constitutional: well developed and well nourished; no acute distress Eyes: no conjunctival abnormality ENMT: external ear and nose normal, oropharynx normal Neck: trachea midline, no thyromegaly Respiratory: normal respiratory effort, lungs clear to auscultation Cardiovascular: Rate/Rhythm: regular rate and regular rhythm Heart Sounds: normal S1, normal S2 and + murmur (. 1-2 or 6 systolic murmur no diastolic) Vessels: no JVD Extremities: no edema Gastrointestinal (Abdomen): normal bowel sounds, soft, nontender, no hepatosplenomegaly Skin: no rashes, warm and dry Neurologic: PERRL, EOMI, accommodation nl, no face palsy, no dysarthria Psychiatric: A+Ox3, euthymic affect Results & Data ([facility]) Vital Signs (Past 12 Hours) Vital Signs Temp Pulse Resp BP Pulse Ox Pulse Ox O2 Del Method 08/23/22 10:57 36.6 C 58 L 19 118/70 95 Room Air 08/23/22 07:22 36.7 C 63 19 122/67 96 Room Air 08/23/22 04:39 36.8 C 70 16 131/67 98 Room Air 08/23/22 04:39 98 O2 Del Method 08/23/22 10:57 08/23/22 07:22 08/23/22 04:39 08/23/22 04:39 Room Air Laboratory Results Laboratory Results - last 24 hr 08/23/22 08/23/22 06:56 06:56 WBC 10.08 RBC 3.32 L Hgb 9.8 L Hct 29.9 L MCV 90.1 MCH 29.5 MCHC 32.8 RDW Std Deviation 43.2 RDW Coeff of Aimee 13.0 Plt Count 265 MPV 8.7 L Immature Gran % (Auto) 1.0 Neut % (Auto) 75.6 Lymph % (Auto) 16.6 Turner % (Auto) 5.5 Eos % (Auto) 1.0 Baso % (Auto) 0.3 Neut # (Auto) 7.63 H Lymph # (Auto) 1.67 Turner # (Auto) 0.55 Eos # (Auto) 0.10 Baso # (Auto) 0.03 Immature Gran # (Auto) 0.10 H Sodium 140 Potassium 3.5 Chloride 109 H Carbon Dioxide 25 Anion Gap 6 BUN 17 Creatinine 0.67 Est Cr Clr Drug Dosing 74.5 Est GFR ( Amer) 104.7 Est GFR (Non-Af Amer) 90.3 BUN/Creatinine Ratio 25.4 H Glucose 100 H Calcium 8.2 L ECG Additional Comments: Sinus rhythm with PACs, rate 74 bpm with minor nonspecific ST segment changes. No acute ST segment abnormalities or conduction abnormality
--- NOTE | 2022-08-23 13:50 | Pharmacy Report ---
Pharmacy PK ABX Note - Date of Service August 23, 2022 - Assessment and Plan Assessment 66 year old F receiving ceftriaxone and gentamicin (synergy) for treatment of aortic prosthetic valve endocarditis. Blood cultures (+) GPC in chains in 02/27, Biofire (+) Strep spp. ID consulted. Day #1 of antimicrobial therapy. Plan Gentamicin (synergy) * 180mg IV q24h (~3mg/kg/day AdjBW) * Trough level tomorrow prior to the dose to monitor for potential toxicity (goal trough: undetectable) Pharmacy will continue to follow and will adjust dose/frequency as necessary. Thank you.
--- NOTE | 2022-08-23 15:03 | Hospitalist Progress Note ---
Date of Service August 23, 2022 Assessment & Plan (1) Bacteremia: Plan (1) Acute metabolic encephalopathy: Plan: Resolved on antibiotic, mentating at baseline. Likely was secondary to infection, possible blood vs source. (2) Bacteremia on the background of prosthetic valve Infective endocarditis Plan: Recent skin rash, otherwise source unknown. 08/21 blood culture with strep species, repeat blood culture 08/23 pending, repeat blood culture every 48 hours until negative. WBC trending down, T-max of 39.2C. Cefepime changed to ceftriaxone and gentamicin 08/23 08/23 echo with EF 55 to 60%, diastolic dysfunction grade 2, bioprosthetic aortic valve with suspected vegetations, small mobile lesion on atrial aspect of the anterior mitral valve leaflet. Cardiology consult, plan for RENE keiko ID to evaluate patient at 5 PM today. (3) UTI (urinary tract infection): Plan: Patient's antibiotic changed to Rocephin and gentamicin [see above] (4) S/P aortic valve replacement: Plan: Followed by [facility] (5) Shoulder pain: Plan: had some shoulder pain after chopping wood last week, suspect OA vs MSK irritation after extensive work. Improved but still present. Tylenol PRN (6) HTN (hypertension): Plan: Controlled, cont home meds as able, resume HCTZ once risk of hypotension averts w/ better control of her infection. Chronic anemia: Hemoglobin around 10, iron profile with low iron and low normal vitamin B12 level, c/w iron supplement and vitamin B12 supplement. Equivocal Lyme disease: Follow final results, patient on Rocephin. (7) DVT prophylaxis: Plan: Lovenox full Code Dispo-to home when improved. ID to see her at 5 PM.Plan for RENE. Admission and Anticipated Discharge Date Admission Date: August 22, 2022 Subjective Patient seen and examined at bedside as a follow-up of acute metabolic encephalopathy, bacteremia, possible infective endocarditis. Patient was lying in bed, on room air, denies any new acute event overnight, reports headache in the morning which is better with Tylenol per her, denies vision changes or nausea or dizziness or belly pain or other review of symptoms. Patient reports eating okay and moving bowels okay. Physical Exam Physical Exam: GENERAL: Alert and oriented x3. NAD, on RA. HEENT: No pallor, no icterus. Pupils equal, round and reactive to light. Oral mucosa moist. NECK: No JVD, no neck masses. HEART: S1 and S2 heard. Regular rate and rhythm. systolic murmur at aortic and pulmonic area use. RESPIRATORY SYSTEM: Normal AP diameter. No accessory muscle use. No wheezing, no crackles. ABDOMEN: Soft, bowel sounds present, nontender, no distention. CENTRAL NERVOUS SYSTEM: No facial droop. Speech is clear. Obeys simple commands. Moves extremities. EXTREMITIES: No edema, no erythema seen. Results & Data Results & Data ([facility]) Vital Signs (Past 12 Hours) Vital Signs Temp Pulse Resp BP Pulse Ox Pulse Ox O2 Del Method 08/23/22 10:57 36.6 C 58 L 19 118/70 95 Room Air 08/23/22 07:22 36.7 C 63 19 122/67 96 Room Air 08/23/22 04:39 36.8 C 70 16 131/67 98 Room Air 08/23/22 04:39 98 O2 Del Method 08/23/22 10:57 08/23/22 07:22 08/23/22 04:39 08/23/22 04:39 Room Air
[2022-08-24 02:37] LABS: 18KDIGG Band NON-REACTIVE; 23KDIGG Band NON-REACTIVE; 23KDIGM Band REACTIVE; 28KDIGG Band NON-REACTIVE; 30KDIGG Band NON-REACTIVE; 39KDIGG Band NON-REACTIVE; 39KDIGM Band REACTIVE; 41KDIGG Band NON-REACTIVE; 41KDIGM Band NON-REACTIVE; 45KDIGG Band NON-REACTIVE; 58KDIGG Band NON-REACTIVE; 66KDIGG Band NON-REACTIVE; 93KDIGG Band NON-REACTIVE; Lyme Antibodies, WB IgG NEGATIVE (NEGATIVE); Lyme Antibodies, WB IgM POSITIVE (NEGATIVE)
[2022-08-24 07:25] LABS: Hematocrit (blood only) 31.2 % (34.1-44.9); Hemoglobin 10.4 g/dl (12.0-16.0); Mean Corpuscular Hemoglobin 29.4 pg (25.0-34.0); Mean Corpuscular Hgb Conc 33.3 g/dL (32.0-36.0); Mean Corpuscular Volume 88.1 fL (80.0-100.0); Mean Platelet Volume 8.7 fL (9.4-12.3); Platelet Count 314 K/uL (130-400); Red Blood Count 3.54 M/uL (3.93-5.22); White Blood Count 8.71 K/ul (4.8-10.8)
[2022-08-24 07:49] LABS: BUN Creatinine Ratio 27.3 (10-20); Calcium 8.5 mg/dl (8.5-10.1); Creatinine Clr Calc Pharmacy 75.9 ml/min; Est GFR (African American) 105.2 ml/min; Est GFR (Non-African American) 90.8 ml/min; Magnesium 1.9 mg/dl (1.7-2.4); Phosphorus 3.3 mg/dl (2.5-4.9); Potassium 3.5 mmol/L (3.5-5.1)
[2022-08-24] MEDS: ENOXAPARIN INJ 40 MG/0.4 ML SYR SQ SCH (07:55)
[2022-08-24] MEDS: CYANOCOBALAMIN (B-12) 500 MCG TABLET PO SCH (07:55)
[2022-08-24] MEDS: ATORVASTATIN 20 MG TAB PO SCH (07:55)
[2022-08-24] MEDS: ASPIRIN 81 MG ECTAB PO SCH (07:56)
[2022-08-24] MEDS: lisinopril 20 MG TAB PO SCH (07:56)
--- NOTE | 2022-08-24 08:51 | Pre Anesthesia Assessment ---
Date of Service August 24, 2022 Pre Sedation Assessment Vital Signs Temp Pulse Pulse Resp BP Pulse Ox O2 Del Method 08/24/22 06:55 36.8 C 61 19 129/62 95 Room Air 08/24/22 04:00 08/24/22 04:00 36.8 C 58 L 18 119/71 96 Room Air 08/23/22 22:57 37.0 C 59 L 18 113/71 98 Room Air 08/23/22 22:40 63 08/23/22 20:00 Room Air 08/23/22 19:00 37.0 C 65 18 131/68 97 Room Air 08/23/22 16:04 36.4 C L 60 19 114/70 96 Room Air 08/23/22 10:57 36.6 C 58 L 19 118/70 95 Room Air O2 Del Method 08/24/22 06:55 08/24/22 04:00 Room Air 08/24/22 04:00 08/23/22 22:57 08/23/22 22:40 08/23/22 20:00 08/23/22 19:00 08/23/22 16:04 08/23/22 10:57 Pre-Sedation Airway Assessment Smoking Status: Former smoker Notes The planned sedation has been discussed with the patient. Informed Consent was obtained. I have identified the patient, determined the appropriateness of sedation and have assessed the patient immediately prior to the procedure. All medicine(s) and interventions are by my order.
[2022-08-24] MEDS ORDERED: MIDAZOLAM HCL 5 MG/ML 1 ML VIAL ONE (09:18)
[2022-08-24] MEDS ORDERED: BENZOCAINE/TETRACAIN/BUTAM 50 APPLN/5 GM CAN EXT ONE (09:19)
[2022-08-24] MEDS ORDERED: fentaNYL citrate 100 MCG/2 ML VIAL ONE (09:19)
--- NOTE | 2022-08-24 10:05 | Post Anesthesia Assessment ---
Date of Service August 24, 2022 Post Sedation Assessment Vital Signs Temp Pulse Pulse Resp BP Pulse Ox O2 Del Method 08/24/22 10:00 63 18 124/72 99 Nasal Cannula 08/24/22 09:55 64 18 139/58 L 99 Nasal Cannula 08/24/22 09:50 61 18 137/88 99 Nasal Cannula 08/24/22 09:40 59 L 18 138/62 99 Nasal Cannula 08/24/22 09:39 59 L 18 140/63 100 Nasal Cannula 08/24/22 09:36 61 18 140/63 99 Room Air 08/24/22 09:45 59 L 18 137/57 L 99 Nasal Cannula 08/24/22 09:33 66 18 149/55 H 99 Room Air 08/24/22 09:25 59 L 18 144/68 H 97 Room Air 08/24/22 08:52 61 08/24/22 06:55 36.8 C 61 19 129/62 95 Room Air 08/24/22 04:00 08/24/22 04:00 36.8 C 58 L 18 119/71 96 Room Air 08/23/22 22:57 37.0 C 59 L 18 113/71 98 Room Air 08/23/22 22:40 63 08/23/22 20:00 Room Air 08/23/22 19:00 37.0 C 65 18 131/68 97 Room Air 08/23/22 16:04 36.4 C L 60 19 114/70 96 Room Air 08/23/22 10:57 36.6 C 58 L 19 118/70 95 Room Air O2 Del Method O2 Flow Rate 08/24/22 10:00 4 08/24/22 09:55 4 08/24/22 09:50 4 08/24/22 09:40 4 08/24/22 09:39 4 08/24/22 09:36 08/24/22 09:45 4 08/24/22 09:33 08/24/22 09:25 08/24/22 08:52 08/24/22 06:55 08/24/22 04:00 Room Air 08/24/22 04:00 08/23/22 22:57 08/23/22 22:40 08/23/22 20:00 08/23/22 19:00 08/23/22 16:04 08/23/22 10:57 Recovery Score Activity: Moves 4 extremities Respiration: Deep Breath/Cough Circulation: +/-20% PreAnes Value Consciousness: Fully Awake Oxygen Saturation: > 92% On Room Air Post Anesthesia Score: 10 Discharge Sedation Level of Care: Fast Track Phase II Post Sedation Plan On clinical assessment, the patient appears to have tolerated the sedation without complications. Patient is recovering as anticipated. Patient will continue to be monitored by nursing and may be discharged when s edation discharge criteria are met per below protocol. Upon Completions of procedure up to 15 minutes continue every 5 minute vital signs and the P.A.R. score; then discharge to a Phase I or Fast Track to Phase II per the following guidelines: * Discharge Patient to appropriate Phase II area if PAR is 8 or greater or return to pre- procedure baseline. The post - procedure orders will be as directed. * If PAR score is less than 8 or not return to pre-procedure baseline then patient will follow Phase I monitoring till PAR is reached for Phase II. The Phase I may be done in procedure room or may call to secure a Phase I area. * If naloxone or flumazenil are used for reversal, hold in Phase I for continued monitoring from when last reversal dose was given for a minimum of 60 minutes or longer pending the nurse and/or physician discretion of patient condition before discharge to Phase II. Please call the Sedation Physician to re-evaluate and complete post-note for discharge to Phase II area. Do NOT discharge from procedure sedation or Phase 1 until post- sedation evaluation note is complete by procedure /sedation MD Sedation Discharge Instructions to be given to the patient at discharge to home.
--- NOTE | 2022-08-24 10:07 | Operative Report ---
Post Operative Report Pre & Post Diagnosis Operation Date: 08/24/22 09:30 <No data on this case meets the specified criteria> I identified the patient and participated in the time-out.: Yes Procedure Operation Date: 08/24/22 09:30 Actual Procedures s Echo Color Flow - Mainor Montano, DO s Echo Doppler Complete - Mainor Montano, p Echo Transesophageal - Mainor Montano, Surgeon Mainor Montano, Digital Community Manager Abigail MILLS Estimated Blood Loss 0 Findings Consistent with Post-Op Diagnosis Informed consent obtained. Patient prepped. Adequate moderate sedation achieved with a total of Versed 2 mg and fentanyl 75 mcg. RENE performed. Patient tolerated well. Recover per protocol. Start time 0938. Stop time 1000 See separate report for full detail Specimens none Description of Procedure see above I attest to the content of the Intraoperative Record and any orders documented therein. Any exceptions are noted below.
[2022-08-24] MEDS ORDERED: GENTAMICIN TROUGH 1 EACH ONE (11:30)
[2022-08-24] MEDS: cefTRIAXone SODIUM 2,000 MG in DEXTROSE 5% 50 ML IV SCH (11:49)
[2022-08-24] MEDS: FERROUS SULFATE 325 MG TAB PO SCH (11:50)
--- NOTE | 2022-08-24 14:53 | Cardiology Progress Note ---
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 Blood cultures returning positive for streptococcal species. Echocardiogram suggestive of small vegetations with normally functioning bioprosthesis Plan: Agree with antibiotics and ID consultation RENE scheduled for a.m., n.p.o. after midnight Discussed initial management of endocarditis with patient. Further information pending results of testing. If significant prosthetic valve involvement possible need for surgical repair placement noted. Streptococcal species more favorable EKG without conduction abnormalities, chest x-ray clear, head CTA without lesion no peripheral embolic phenomena on examination. Would consider cerebral MRI with any change in mental status further. Patient notes claustrophobia has limited MRI in the past 08/24/2022: Patient hemodynamically and clinically stable. No arrhythmias currently afebrile. RENE images reviewed there is moderate thickening of the paravalvular structures. Short axis view of the aortic valve prosthesis reveals perivalvular lucency question secondary to prior root replacement versus perivalvular abscess. Trivial amount of perivalvular insufficiency noted. No postoperative RENE images available for review from 2014 Discussed in detail with patient. Arrangements being made for CV surgery evaluation at [facility] [place] Have forwarded images to [employer] for remote review in the interim. EKG ordered for a.m. Continue antibiotic therapies Admission and Anticipated Discharge Date Admission Date: August 22, 2022 Subjective Patient was seen and examined, chart, telemetry reviewed. RENE images reviewed Patient without complaint prior confusion is completely cleared. No fevers or chills. No chest pain or discomfort. Review of Systems Review of Systems: All systems reviewed & are unremarkable except as noted in Subjective Physical Exam Constitutional: well developed and well nourished; no acute distress Eyes: no conjunctival abnormality ENMT: external ear and nose normal, oropharynx normal Neck: trachea midline, no thyromegaly Respiratory: normal respiratory effort, lungs clear to auscultation Cardiovascular: Rate/Rhythm: regular rate and regular rhythm Heart Sounds: normal S1, normal S2 and + murmur (. 1-2 or 6 systolic murmur no diastolic) Vessels: no JVD Extremities: no edema Gastrointestinal (Abdomen): normal bowel sounds, soft, nontender, no hepatosplenomegaly Skin: no rashes, warm and dry Neurologic: PERRL, EOMI, accommodation nl, no face palsy, no dysarthria Psychiatric: A+Ox3, euthymic affect Results & Data ([facility]) Vital Signs (Past 12 Hours) Vital Signs Temp Pulse Pulse Pulse Resp BP BP 08/24/22 10:58 36.5 C 60 20 144/75 H 08/24/22 10:20 56 L 16 135/60 08/24/22 10:05 63 16 129/58 L 08/24/22 10:00 63 18 124/72 08/24/22 09:55 64 18 139/58 L 08/24/22 09:50 61 18 137/88 08/24/22 09:40 59 L 18 138/62 08/24/22 09:39 59 L 18 140/63 08/24/22 09:36 61 18 140/63 08/24/22 09:45 59 L 18 137/57 L 08/24/22 09:33 66 18 149/55 H 08/24/22 09:25 59 L 18 144/68 H 08/24/22 08:52 61 08/24/22 06:55 36.8 C 61 19 129/62 08/24/22 04:00 08/24/22 04:00 36.8 C 58 L 18 119/71 Pulse Ox O2 Del Method O2 Del Method O2 Flow Rate 08/24/22 10:58 97 Room Air 08/24/22 10:20 95 Room Air 08/24/22 10:05 95 Room Air 08/24/22 10:00 99 Nasal Cannula 4 08/24/22 09:55 99 Nasal Cannula 4 08/24/22 09:50 99 Nasal Cannula 4 08/24/22 09:40 99 Nasal Cannula 4 08/24/22 09:39 100 Nasal Cannula 4 08/24/22 09:36 99 Room Air 08/24/22 09:45 99 Nasal Cannula 4 08/24/22 09:33 99 Room Air 08/24/22 09:25 97 Room Air 08/24/22 08:52 08/24/22 06:55 95 Room Air 08/24/22 04:00 Room Air 08/24/22 04:00 96 Room Air Laboratory Results Laboratory Results - last 24 hr 08/22/22 08/24/22 08/24/22 01:06 07:03 07:03 WBC 8.71 RBC 3.54 L Hgb 10.4 L Hct 31.2 L MCV 88.1 MCH 29.4 MCHC 33.3 RDW Std Deviation 42.0 RDW Coeff of Aimee 13.0 Plt Count 314 MPV 8.7 L Sodium 141 Potassium 3.5 Chloride 108 H Carbon Dioxide 27 Anion Gap 6 BUN 18 Creatinine 0.66 Est Cr Clr Drug Dosing 75.9 Est GFR ( Amer) 105.2 Est GFR (Non-Af Amer) 90.8 BUN/Creatinine Ratio 27.3 H Glucose 98 Calcium 8.5 Phosphorus 3.3 Magnesium 1.9 Lyme IgG (Western Blot) NEGATIVE Lyme IgG 18 kDa Band NON-REACTIVE Lyme IgG 23 kDa Band NON-REACTIVE Lyme IgG 28 kDa Band NON-REACTIVE Lyme IgG 30 kDa Band NON-REACTIVE Lyme IgG 39 kDa Band NON-REACTIVE Lyme IgG 41 kDa Band NON-REACTIVE Lyme IgG 45 kDa Band NON-REACTIVE Lyme IgG 58 kDa Band NON-REACTIVE Lyme IgG 66 kDa Band NON-REACTIVE Lyme IgG 93 kDa Band NON-REACTIVE Lyme IgM Ab (WB) POSITIVE A Lyme IgM 23 kDa Band REACTIVE A Lyme IgM 39 kDa Band REACTIVE A Lyme IgM 41 kDa Band NON-REACTIVE
[2022-08-24] MEDS: ACETAMINOPHEN 325 MG TAB PO PRN (15:31)
--- NOTE | 2022-08-24 16:09 | Hospitalist Progress Note ---
Date of Service August 24, 2022 Assessment & Plan (1) Bacteremia: Plan Acute metabolic encephalopathy: Bacteremia on the background of prosthetic valve Infective endocarditis Patient had leukocytosis on presentation and had RR >20 at some point on day of presenation Hence, patient meets criteria for Sepsis 08/21 blood culture growing Strep anginosus Repeat blood culture 08/23 negative so far T-max of 39.2C. 08/23 echo with EF 55 to 60%, diastolic dysfunction grade 2, bioprosthetic aortic valve with suspected vegetations, small mobile lesion on atrial aspect of the anterior mitral valve leaflet. Patient had RENE today. Awaiting full report Discussed with [place] Driver Dr Funes. Due to concern on RENE, he is recommending initiating transfer to [facility]. He is also making arrangements to review findings with Cardiothoracic surgery at [facility] ID recommendations noted Currently on ceftriaxone Encephalopathy is resolved Possible UTI (urinary tract infection): Patient denies urinary symptoms UA showed leuk est, >30WBC Urine culture is contaminated Currently on ceftriaxone S/P aortic valve replacement: Followed by [facility]iology Shoulder pain: Reported left shoulder pain after chopping wood last week, suspect OA vs MSK irritation after extensive work. Improved but still present. Tylenol PRN HTN (hypertension): Controlled, cont home meds as able Chronic anemia: Hemoglobin around 10, iron profile with low iron and low normal vitamin B12 level, c/w iron supplement and vitamin B12 supplement. Equivocal Lyme disease: Follow final results, patient on Rocephin. DVT prophylaxis: Lovenox full Code Called [facility] Transfer center. Patient accepted for transfer under Dr Arguelles Admission and Anticipated Discharge Date Admission Date: August 22, 2022 Subjective Patient and examined Patient seen after RENE earlier today Patient currently denies any cough, chest pain, shortness of breath Reports dyspnea on exertion that started some months over the summer Denied any nausea, vomiting, abd pain Reports confusion has resolved Denied fever, chills Physical Exam Constitutional: + well hydrated; no acute distress Eyes: PERRL, conjunctivae normal, anicteric sclerae ENMT: external ear and nose normal, oropharynx normal Respiratory: normal respiratory effort, lungs clear to auscultation Cardiovascular: Rate/Rhythm: regular rate and regular rhythm S1 S2 Gastrointestinal (Abdomen): normal bowel sounds, soft, nontender, no hepatosplenomegaly Musculoskeletal: No pedal edema Neurologic: PERRL, EOMI, accommodation nl, no face palsy, no dysarthria Psychiatric: A+Ox3, euthymic affect Results & Data Results & Data ([facility]) Vital Signs (Past 12 Hours) Vital Signs Temp Pulse Pulse Pulse Resp BP BP 08/24/22 15:26 36.4 C L 55 L 19 137/73 08/24/22 10:58 36.5 C 60 20 144/75 H 08/24/22 10:20 56 L 16 135/60 08/24/22 10:05 63 16 129/58 L 08/24/22 10:00 63 18 124/72 08/24/22 09:55 64 18 139/58 L 08/24/22 09:50 61 18 137/88 08/24/22 09:40 59 L 18 138/62 08/24/22 09:39 59 L 18 140/63 08/24/22 09:36 61 18 140/63 08/24/22 09:45 59 L 18 137/57 L 08/24/22 09:33 66 18 149/55 H 08/24/22 09:25 59 L 18 144/68 H 08/24/22 08:52 61 08/24/22 06:55 36.8 C 61 19 129/62 08/24/22 04:00 08/24/22 04:00 36.8 C 58 L 18 119/71 Pulse Ox O2 Del Method O2 Del Method O2 Flow Rate 08/24/22 15:26 96 Room Air 08/24/22 10:58 97 Room Air 08/24/22 10:20 95 Room Air 08/24/22 10:05 95 Room Air 08/24/22 10:00 99 Nasal Cannula 4 08/24/22 09:55 99 Nasal Cannula 4 08/24/22 09:50 99 Nasal Cannula 4 08/24/22 09:40 99 Nasal Cannula 4 08/24/22 09:39 100 Nasal Cannula 4 08/24/22 09:36 99 Room Air 08/24/22 09:45 99 Nasal Cannula 4 08/24/22 09:33 99 Room Air 08/24/22 09:25 97 Room Air 08/24/22 08:52 08/24/22 06:55 95 Room Air 08/24/22 04:00 Room Air 08/24/22 04:00 96 Room Air Laboratory Results Abnormal lab results 08/22/22 08/24/2208/24/22 Range/Units 01:06 07:03 07:03 RBC 3.54 L (3.93-5.22) M/uL Hgb 10.4 L (12.0-16.0) g/dl Hct 31.2 L (34.1-44.9) % MPV 8.7 L (9.4-12.3) fL Chloride 108 H (98-107) mmol/L BUN/Creatinine Ratio 27.3 H (10-20) Lyme IgM Ab (WB) POSITIVE A (NEGATIVE) Lyme IgM 23 kDa Band REACTIVE A Lyme IgM 39 kDa Band REACTIVE A
--- NOTE | 2022-08-24 17:27 | Discharge Summary ---
Date of Service August 24, 2022 Admission HPI Per Admitting Provider History obtained from patient, family, and records. Medical history significant for hypertension, bicuspid aortic stenosis status post bioprosthetic AVR, hyperlipidemia. Patient noted to be sleepy by family at home yesterday. Patient confused. Achy headache symptoms. No chest pain, no shortness of breath, no abdominal pain, no dysuria complaints. No fever, no chills. No recollection of recent tick exposure. No new medications except for prednisone course recently prescribed by PCP for left shoulder pain attributed to rotator cuff syndrome. Patient denies use of home bedtime lorazepam for sleep. Patient seen by [facility] outpatient 3 days ago. Patient also remembers landing on her home furnace for the first time this season. No prior issues with furnace as per patient. Patient brought to the ER for evaluation. Cefepime and Vancomycin administered at the ER. 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 Exam Per Admitting Provider GENERAL: Slightly uncomfortable, obese, lethargic, no respiratory distress SKIN: Normal color, warm HEENT: Bespectacled, [place] palpebral conjunctivae, no ptosis, dry buccal mucosa NECK : Supple, no tenderness CHEST : CTA, no tenderness HEART : RRR, no obvious murmurs ABDOMEN: Some distention, nontender EXTREMITIES : No LE swelling/tenderness, left shoulder tenderness NEUROLOGIC : Lethargic, no facial asymmetry, no other gross focality Principal Diagnosis Sepsis Infective endocarditis Streptococcal bacteremia Discharge Exam Constitutional + well hydrated; no acute distress Eyes PERRL, conjunctivae normal, anicteric sclerae ENMT external ear and nose normal, oropharynx normal Respiratory normal respiratory effort, lungs clear to auscultation Cardiovascular Rate/Rhythm: regular rate and regular rhythm S1 S2 Gastrointestinal (Abdomen) normal bowel sounds, soft, nontender, no hepatosplenomegaly Musculoskeletal no cyanosis or clubbing, extremities motor strength 5/5 Neurologic PERRL, EOMI, accommodation nl, no face palsy, no dysarthria Psychiatric A+Ox3, euthymic affect Discharge Data Allergies Allergy/AdvReac Type Severity Reaction Status Date / Time No Known Allergies Allergy Unverified 08/22/22 00:02 Consultations 08/21/22 23:43 ED Decision to Admit Stat 08/22/22 16:52 Consult Infectious Diseases Routine 08/23/22 10:25 Consult Cardiology Routine 08/24/22 17:18 Burn CD for patient Stat Procedures Performed Operation Date: 08/24/22 09:30 Actual Procedures s Echo Color Flow - Mainor Montano DO s Echo Doppler Complete - Mainor Montano DO p Echo Transesophageal - Mainor Montano DO Ordered Studies 08/21/22 18:03 CTA head wo/w [CT angio head wo/w] Urgent CTA neck with con [CT angio neck with con] Urgent Brain parenchyma: There is age-related involutional change noting mild subcortical and periventricular microangiopathic disease. There is no hemorrhage, mass effect, or evidence of acute territorial ischemia by CT criteria. There is no evidence of enhancing mass lesion on the angiogram phase images. The ventricles, sulci, and cisterns are prominent secondary to involutional change. Sau[place]o-white matter differentiation is preserved. No extra- axial fluid collection is seen. Thoracic aorta: There is atherosclerotic calcification of the thoracic aorta. Visualized portions of the thoracic aorta are normal in caliber. The aortic arch demonstrates standard 3-vessel anatomy. Right carotid arterial system: The right common carotid artery is widely patent, as are the right internal and external carotid arteries. Left carotid arterial system: The left common carotid artery is widely patent, as are the left internal and external carotid arteries. Mild calcified plaque is noted in the carotid bulb. Vertebral arteries: The vertebral arteries are widely patent bilaterally noting mild right-sided dominance. Subclavian arteries: Widely patent bilaterally. Intracranial vasculature: There is atherosclerotic calcification of the cave rnous carotid arteries. The [place] is developmentally complete. The internal carotid arteries are patent at the skull base, as are the anterior and middle cerebral arteries bilaterally. The vertebrobasilar system and posterior cerebral arteries are widely patent. The right vertebral artery is dominant. There is no aneurysm, high-grade stenosis, or focal vessel cut off seen throughout the intracranial circulation. Jugular veins: Patent bilaterally. Dural sinuses: Patent. Lung apices: Partially visualized upper lobe lung parenchyma appears clear. Soft tissues: The visualized pharyngeal soft tissues are normal in appearance noting angiographic phase technique. The oropharyngeal airway appears widely patent. The salivary and thyroid glands are normal in appearance. No cervical ly mphadenopathy is seen. Skeletal structures: The skeletal structures are osteopenic. The calvarium appears intact. The cervical spine is maintained noting multilevel spondylosis. No lytic or blastic lesion is seen. The patient is status post midline sternotomy. Orbits: The bony orbits are intact. Orbital contents are normal as visualized. Sinuses and mastoids: The paranasal sinuses are clear. The mastoid air cells are well pneumatized. IMPRESSION: 1. There is no hemorrhage, mass effect, or evidence of acute territorial ischemia by CT criteria. 2. Unremarkable CT angiogram of the brain. 3. Unremarkable CT angiogram of the neck. Hospital Course (1) Bacteremia: Plan Acute metabolic encephalopathy: Bacteremia on the background of prosthetic valve Infective endocarditis Patient had leukocytosis on presentation and had RR >20 at some point on day of presenation Hence, patient met criteria for Sepsis 08/21 blood culture growing Strep anginosus Repeat blood culture 08/23 negative so far T-max of 39.2C. 08/23 echo with EF 55 to 60%, diastolic dysfunction grade 2, bioprosthetic aortic valve with suspected vegetations, small mobile lesion on atrial aspect of the anterior mitral valve leaflet. Patient had RENE on 08/24/22. Awaiting full report Discussed with College Football Coach Dr Funes. Due to concerning findings on RENE, he is recommending [place] [facility] He is also making arrangements to review findings with [place]oth[place]acic [place] [facility] [place] recommendations noted Currently on ceftriaxone Encephalopathy is resolved Possible UTI (urinary tract infection): Patient denies urinary symptoms UA showed leuk est, >30WBC Urine culture is contaminated Currently on ceftriaxone S/P aortic valve replacement: Followed by [facility] Shoulder pain: Reported left shoulder pain after chopping wood last week, suspect OA vs MSK irritation after extensive work. Improved but still present. Tylenol PRN HTN (hypertension): Controlled, cont home meds as able Chronic anemia: Hemoglobin around 10, iron profile with low iron and low normal vitamin B12 level, c/w iron supplement and vitamin B12 supplement. Equivocal Lyme disease: Follow final results, patient on ceftriaxone Patient transferred to [facility] per Cardiology recommendations for continued management Total Time Total Time Spent Total Time Spent (In Minutes): 45 Total Time Includes: Examination of the Patient, Discharge Planning, Medication Reconciliation, Communication With Other Providers and Other Discharge Plan Discharge Items Patient Disposition: Transfer Acute Care Hospital Reason For Visit: Confusion Discharge Diagnosis: Sepsis Infective endocarditis Streptococcal bacteremia Activity: Resume your previous activity Non-emergency contact: Primary Care Provider and College Football Coach Call non-emergency contact if: you have any medication questions Follow-up/Referrals: Pita Horton PA-C [Primary Care Provider] - Diet: Heart Healthy Addtl Attending Provider Instructions: Mrs Phelps You came to the hospital complaining of confusion You were evaluated and found to have infection in your blood and your heart. You were started on antibiotics and being transferred to [facility] for further evaluation considering the prosthesis in your heart. It was a pleasure taking care of you. Pending Studies at Discharge: Yes Stand-Alone Forms: My [facility] Skilled Items Patient informed of condition?: Yes DNR: No Discharge Level of Care: Other Communicable Disease: No Discharge Prognosis: Stable Lines: Peripheral IV Urinary Catheter: No Medications and DC Order Prescriptions: Continued amoxicillin 500 mg capsule 2,000 mg PO DIRECTED PRN (Reason: Take 1 hr proir to dental apt.) atorvastatin 20 mg tablet 20 mg PO DAILY lisinopril 20 mg tablet 20 mg PO QAM prednisone 20 mg tablet 20 mg PO .TAPER UD Rx Instructions: TAKE 3 TABS FOR 3 DAYS, 2 TABS FOR 3 DAYS, 1 TAB FOR 3 DAYS, 1/2 TAB FOR 3 DAYS. clobetasol 0.05 % Cream 1 applic TOPICAL BID PRN (Reason: flare ups) acyclovir 400 mg tablet 400 mg PO DIRECTED Rx Instructions: 1 tab 5xs prn aspirin 81 mg Tablet,Delayed Release (Dr/Ec) 81 mg PO DAILY lorazepam 0.5 mg Tablet 0.5 mg PO HS PRN (Reason: Sleep) ferrous sulfate [iron] 325 mg (65 mg iron) Tablet 325 mg PO DAILY hydrochlorothiazide 25 mg tablet 25 mg PO QAM Discharge Orders: Discharge Order (Routine); Ordered 08/24/22 Ordered By: Kenia Brock/Other Patient Handouts: Prediabetes, 5 Steps for Eating Healthier Admission Data Admit Date/Time: 08/22/22 00:44 Attending Provider: Kenia Bateman I. Admit Provider: Yury Coombs Primary Care Provider: Pita Horton Other Providers: Yury Coombs ; Wilver Mandel ; Vanesa Wilson ; Charli Cristina I. ; Scar Nunez II ; Ifrah Sosa ; Efrain De La Paz ; Romain Fernandez ; Bri Villegas ; Mainor Montano ; Roselyn Leija Other Interventions: Discharge Summary Assessment (RN) Last Done: 08/24/22 17:31
== END 2022-08-24 20:48 | disposition short-term general hospital (02) | DRG 871 ==
LOC: ED 17:30 → 2S 08-22 00:44 → SUATTDRO 08-22 00:44 → 2S 08-22 03:45